=== PATIENT | female | born 1935 | race Caucasian/White ===

== ENCOUNTER 2023-12-08 12:44 | Inpatient (IN) | payer OTHER, SELFPAY ==
[2023-12-08] VITALS (23 sets, daily range): BP systolic 90–127; BP diastolic 47–86; BMI 53.6; BMI 52.6
[2023-12-08 10:16] LABS: % Eosinophils 10.9 % (0-6); % Lymphocytes 9.9 % (20.5-51.1); % Monocytes 18.9 % (1.7-9.3); % Neutrophils 58.3 % (42.2-75.2); Absolute Eosinophils 0.3 10^3/uL (0-0.7); Absolute Lymphocytes 0.3 10^3/uL (1.2-3.4); Absolute Monocytes 0.6 10^3/uL (0.1-0.6); Absolute Neutrophils 1.8 10^3/uL (1.4-6.5); Hematocrit 35.2 % (37.0-47.0); Hemoglobin 11.8 g/dL (12.0-16.0); Mean Corp Hgb Conc. 33.5 g/dL (33.0-37.0); Mean Corpuscular Hgb 34.5 pg (27.0-31.0); Mean Corpuscular Volume 102.9 fL (81.0-99.0); Nucleated Red Blood Cells % 0 %; Red Blood Cell Count 3.42 10^6/uL (4.20-5.40); Red Cell Dist. Width 15.2 % (11.5-14.5); White Blood Cell Count 3.1 10^3/uL (4.8-10.8)
[2023-12-08] MEDS: NSS 1000 IV ×2 (10:26→13:15)
--- NOTE | 2023-12-08 10:26 | ED.GENMED ---
History of Present Illness
<Lluvia Lema PA-C - Last Filed: 12/09/23 09:07>
General
Chief Complaint: Change in Mental Status
Source: patient, records and ambulance crew
Exam Limitations: clinical condition and altered mental status
Time Seen by Provider: 12/08/23 09:35
Nursing documentation reviewed up to this point in time: agreed with
Travel History
Have you had any contact with someone who has COVID-19?: No
Do you have any symptoms of coronavirus? Fever > 100 degrees, chills, cough, shortness of breath, sore throat, loss of taste or smell, muscle aches, or headache?: No
History of Present Illness
History of Present Illness:
Patient is a 88 year old female w/ hx HTN, HLD, diabetes, hypothyroid presenting from rehab facility for worsening delirium. Per notes from rehab facility�she has been very restless over the past few days and refusing medications. She has not been
eating or drinking. Per EMS�alf found her oxygen saturation in the low 90s on room air earlier today and heard audible wheezing. They gave her a DuoNeb which improved wheezing. On arrival to emergency department patient was found to be
hypothermic with a rectal temp of 92.7.
Of note, patient was currently at on 11/27/23 where MRI showed worsening osteomyelitis of thoracic spine and she was transferred to [facility] for further treatment. At [facility] ID changed treatment to daptomycin through PICC line which she is currently
receiving once daily and is planned to continue it through 12/11. While at [facility] she developed delirium possibly due to hepatic encephalopathy started on lactulose and Zyprexa.
Past History
<Lluvia Lema PA-C - Last Filed: 12/09/23 09:07>
Past History
ED Past Medical History: NIDDM and Other (COPE)
Social History
Tobacco: Non-smoker
Phy Exam
<Lluvia Lema PA-C - Last Filed: 12/09/23 09:07>
Physical Exam
Physical Exam:
General: Ill-appearing, frail-hypothermic
HEENT: Atraumatic, normocephalic; dry mucous membranes, protecting airway
CV: Regular rate and rhythm, heart sounds normal, no evidence of cyanosis
Resp: Decreased breath sounds bilaterally, O2 sat 95 on room air in emergency department
Abd: Soft, nontender, non-distended
Extremities: Bilateral lower leg edema, no cyanosis; moving all extremities
Neuro: Obtunded, some response to verbal stimuli; moving all extremities
Psych: Normal affect
Skin: Intact, rash on bilateral lower legs
Course
<Lluvia Lema PA-C - Last Filed: 12/09/23 09:07>
Orders/Labs/Results
Orders:
Orders
12/08/23 09:47
Portable Chest Xray [CR Chest Portable - 1 View] Urgent
Comment:
Reason For Exam: sob and check placement of exsisting PICC line
Reason Study Needs to be Portable: Patient Unstable
12/08/23 09:49
Electrocardiogram (*1) Urgent
Reason for Study: Other
Other Reason for Exam: Possible Sepsis
Cardiac Monitoring- Treatment ONCE
EKG- Treatment ONCE
IV Insert/Care/Rem.- Treatment PRN
Straight cath- Treatment ONCE
O2 Therapy [RESP] Urgent
Titrate/Wean O2 to maintain O2 sat greater than (%): 93
Special Instructions: TO MAINTAIN CONTINUOUS O2 SATS > OR = 93%
Pulse Ox/cont/shift [RESP] Urgent
Quantity: 1
Special Instructions: CONTINUOUS
12/08/23 10:01
Complete Blood Count/With Diff Urgent
Comprehensive Metabolic Panel Urgent
Cortisol, Random Urgent
Comment: ADD ON
Creatine Phosphokinase Urgent
Comment: ADD ON
Lactic Acid Q4H
Comment: ON ICE, CANCEL 2ND ORDER IF FIRST LACTIC ACID LEVEL <2
TSH Reflex To Free T4 Urgent
Comment: ADD ON
Blood Culture Q30M
JAY JAY Source: Blood/Venous
Specimen Description:
Comment: FROM 2 SEPARATE SITES
12/08/23 10:19
Add On- LAB Urgent
Tests Added?: TSH w/ reflex T4, random cortisol, ammonia
0.9% Sodium Chloride 1000 ml [Nss] 1,000 ml IV BOLUS
12/08/23 10:45
CT Head W/o Iv Contrast Urgent
Comment:
Reason For Exam: altered mental status
12/08/23 11:11
Ammonia Urgent
Comment: PLEASE DRAW; CANNOT ADD ON TO PREVIOUS SPECIMENS IN LAB
Blood Culture Q30M
JAY JAY Source: Blood/Venous
Specimen Description:
Comment: FROM 2 SEPARATE SITES
12/08/23 11:40
Arterial Blood Gas Urgent
%Oxygen/Room Air: 94/RA
12/08/23 11:48
Add On- LAB Urgent
Comments:: creatine phosphokinase (CPK)
Tests Added?: y
12/08/23 12:32
Intake/ Output As Directed
Frequency: Per unit guidelines
Neurological Checks As Directed
Frequency: q4h
Ot Eval And Treat Routine
Pt Eval And Treat Routine
Activity Level: As Tolerated
12/08/23 12:34
Activity As Directed
Activity Level: As Tolerated
Pneumatic Compression Sleeves As Directed
Type: Knee high
Vital Signs As Directed
Frequency: Per unit guidelines
DX Deep Vein Thrombosis Video Routine
12/08/23 12:35
Admit/Transfer Patient As Directed
Co-Sign Provider:
Level of Care: Inpatient admission
Assign to:: IMU- Intermediate Care
Physician / Group: brynn boogie
Diagnosis: Sepsis concern for bacteremia T8-T9 discitis/osteo
Reason for Hospitalization: Hypothermia concern for sepsis bacteremia, chronic T8-T9 discitis/osteomyel
Expected length of stay greater than two midnights?: Yes
ELOS- Estimated Length of Stay in days: 5
I certify the patient meets the requirements for IP care: Yes
12/08/23 12:38
INFECTIOUS DISEASE CONSULT Routine
Consulting Provider: Sana Barbosa
Was physician already notified: Yes
Reason for consult: Hypothermia concern for sepsis bacteremia
12/08/23 12:45
0.9% Sodium Chloride 1000 ml [Nss] 1,000 ml IV 80 mls/hr
12/08/23 Dinner
NPO
Allow oral meds: No
Allow clear liquids: No
NPO with Ice Chips: No
12/08/23 15:11
DAPTOmycin [Cubicin] 500 mg IV DAILY@1300
12/08/23 15:11
Admit Patient As Directed
Co-Sign Provider:
Level of Care: Inpatient admission
Assign to:: IMU- Intermediate Care
Physician / Group: brynn boogie
Diagnosis: Hypothermia concern for sepsis bacteremia, chronic T8-T9 discitis/osteomyel
Reason for Hospitalization: Hypothermia concern for sepsis bacteremia, chronic T8-T9 discitis/osteomyel
Expected length of stay greater than two midnights?: Yes
ELOS- Estimated Length of Stay in days: 5
I certify the patient meets the requirements for IP care: Yes
12/09/23 03:53
Complete Blood Count/With Diff IN AM
Comprehensive Metabolic Panel IN AM
12/10/23 06:00
Complete Blood Count/With Diff IN AM
Comprehensive Metabolic Panel IN AM
12/11/23 06:00
Complete Blood Count/With Diff IN AM
Comprehensive Metabolic Panel IN AM
12/12/23 06:00
Complete Blood Count/With Diff IN AM
Comprehensive Metabolic Panel IN AM
Abnormal Lab Results
12/08/23 12/08/23
10:01 11:40
WBC 3.1 L 10^3/uL
(4.8-10.8)
RBC 3.42 L 10^6/uL
(4.20-5.40)
Hgb 11.8 L g/dL
(12.0-16.0)
Hct 35.2 L %
(37.0-47.0)
MCV 102.9 H fL
(81.0-99.0)
MCH 34.5 H pg
(27.0-31.0)
RDW 15.2 H %
(11.5-14.5)
Plt Count 55 L 10^3/uL
(130-400)
MPV 11.3 H fL
(7.4-10.4)
Absolute Lymphs (auto) 0.3 L 10^3/uL
(1.2-3.4)
Immature Gran % 1.0 H %
(0-0.5)
Lymphocytes % 9.9 L %
(20.5-51.1)
Monocytes % 18.9 H %
(1.7-9.3)
Eosinophils % 10.9 H %
(0-6)
pH 7.33 L
(7.35-7.45)
pCO2 50 H mmHg
(32-35)
pO2 81 L mmHg
(83-108)
Chloride 109 H mmol/L
(98-107)
Carbon Dioxide 31 H mmol/L
(22-30)
BUN 34 H mg/dl
(7-17)
AST 62 H U/L
(14-36)
ALT 39 H U/L
(0-35)
Alkaline Phosphatase 369 H U/L
(38-126)
Total Protein 5.4 L g/dl
(6.3-8.2)
Albumin 2.7 L g/dl
(3.5-5.0)
12/08/23 10:01
12/08/23 10:01
Vital Signs
Initial and Last Documented VS:
Initial Vital Signs
BP
109/86
12/08/23 09:43
Last Documented Vital Signs
Temp Pulse Resp BP Pulse Ox
97.2 F 79 8 125/49 97
12/09/23 07:38 12/09/23 08:00 12/09/23 08:00 12/09/23 06:00 12/09/23 08:00
<Isacc Gan, DO - Last Filed: 12/08/23 11:08>
Orders/Labs/Results
Orders:
Orders
12/08/23 09:47
Portable Chest Xray [CR Chest Portable - 1 View] Urgent
Comment:
Reason For Exam: sob and check placement of exsisting PICC line
Reason Study Needs to be Portable: Patient Unstable
12/08/23 09:49
Electrocardiogram (*1) Urgent
Reason for Study: Other
Other Reason for Exam: Possible Sepsis
Cardiac Monitoring- Treatment ONCE
EKG- Treatment ONCE
IV Insert/Care/Rem.- Treatment PRN
Straight cath- Treatment ONCE
O2 Therapy [RESP] Urgent
Titrate/Wean O2 to maintain O2 sat greater than (%): 93
Special Instructions: TO MAINTAIN CONTINUOUS O2 SATS > OR = 93%
Pulse Ox/cont/shift [RESP] Urgent
Quantity: 1
Special Instructions: CONTINUOUS
12/08/23 10:01
Complete Blood Count/With Diff Urgent
Comprehensive Metabolic Panel Urgent
Cortisol, Random Urgent
Comment: ADD ON
Creatine Phosphokinase Urgent
Comment: ADD ON
Lactic Acid Q4H
Comment: ON ICE, CANCEL 2ND ORDER IF FIRST LACTIC ACID LEVEL <2
TSH Reflex To Free T4 Urgent
Comment: ADD ON
Blood Culture Q30M
JAY JAY Source: Blood/Venous
Specimen Description:
Comment: FROM 2 SEPARATE SITES
12/08/23 10:19
Add On- LAB Urgent
Tests Added?: TSH w/ reflex T4, random cortisol, ammonia
0.9% Sodium Chloride 1000 ml [Nss] 1,000 ml IV BOLUS
12/08/23 10:45
CT Head W/o Iv Contrast Urgent
Comment:
Reason For Exam: altered mental status
12/08/23 11:11
Ammonia Urgent
Comment: PLEASE DRAW; CANNOT ADD ON TO PREVIOUS SPECIMENS IN LAB
Blood Culture Q30M
JAY JAY Source: Blood/Venous
Specimen Description:
Comment: FROM 2 SEPARATE SITES
12/08/23 11:40
Arterial Blood Gas Urgent
%Oxygen/Room Air: 94/RA
12/08/23 11:48
Add On- LAB Urgent
Comments:: creatine phosphokinase (CPK)
Tests Added?: y
12/08/23 12:32
Intake/ Output As Directed
Frequency: Per unit guidelines
Neurological Checks As Directed
Frequency: q4h
Ot Eval And Treat Routine
Pt Eval And Treat Routine
Activity Level: As Tolerated
12/08/23 12:34
Activity As Directed
Activity Level: As Tolerated
Pneumatic Compression Sleeves As Directed
Type: Knee high
Vital Signs As Directed
Frequency: Per unit guidelines
DX Deep Vein Thrombosis Video Routine
12/08/23 12:35
Admit/Transfer Patient As Directed
Co-Sign Provider:
Level of Care: Inpatient admission
Assign to:: IMU- Intermediate Care
Physician / Group: brynn boogie
Diagnosis: Sepsis concern for bacteremia T8-T9 discitis/osteo
Reason for Hospitalization: Hypothermia concern for sepsis bacteremia, chronic T8-T9 discitis/osteomyel
Expected length of stay greater than two midnights?: Yes
ELOS- Estimated Length of Stay in days: 5
I certify the patient meets the requirements for IP care: Yes
12/08/23 12:38
INFECTIOUS DISEASE CONSULT Routine
Consulting Provider: Sana Barbosa
Was physician already notified: Yes
Reason for consult: Hypothermia concern for sepsis bacteremia
12/08/23 12:45
0.9% Sodium Chloride 1000 ml [Nss] 1,000 ml IV 80 mls/hr
12/08/23 Dinner
NPO
Allow oral meds: No
Allow clear liquids: No
NPO with Ice Chips: No
12/08/23 15:11
DAPTOmycin [Cubicin] 500 mg IV DAILY@1300
12/08/23 15:11
Admit Patient As Directed
Co-Sign Provider:
Level of Care: Inpatient admission
Assign to:: IMU- Intermediate Care
Physician / Group: brynn boogie
Diagnosis: Hypothermia concern for sepsis bacteremia, chronic T8-T9 discitis/osteomyel
Reason for Hospitalization: Hypothermia concern for sepsis bacteremia, chronic T8-T9 discitis/osteomyel
Expected length of stay greater than two midnights?: Yes
ELOS- Estimated Length of Stay in days: 5
I certify the patient meets the requirements for IP care: Yes
12/09/23 03:53
Complete Blood Count/With Diff IN AM
Comprehensive Metabolic Panel IN AM
12/10/23 06:00
Complete Blood Count/With Diff IN AM
Comprehensive Metabolic Panel IN AM
12/11/23 06:00
Complete Blood Count/With Diff IN AM
Comprehensive Metabolic Panel IN AM
12/12/23 06:00
Complete Blood Count/With Diff IN AM
Comprehensive Metabolic Panel IN AM
Abnormal Lab Results
12/08/23 12/08/23
10:01 11:40
WBC 3.1 L 10^3/uL
(4.8-10.8)
RBC 3.42 L 10^6/uL
(4.20-5.40)
Hgb 11.8 L g/dL
(12.0-16.0)
Hct 35.2 L %
(37.0-47.0)
MCV 102.9 H fL
(81.0-99.0)
MCH 34.5 H pg
(27.0-31.0)
RDW 15.2 H %
(11.5-14.5)
Plt Count 55 L 10^3/uL
(130-400)
MPV 11.3 H fL
(7.4-10.4)
Absolute Lymphs (auto) 0.3 L 10^3/uL
(1.2-3.4)
Immature Gran % 1.0 H %
(0-0.5)
Lymphocytes % 9.9 L %
(20.5-51.1)
Monocytes % 18.9 H %
(1.7-9.3)
Eosinophils % 10.9 H %
(0-6)
pH 7.33 L
(7.35-7.45)
pCO2 50 H mmHg
(32-35)
pO2 81 L mmHg
(83-108)
Chloride 109 H mmol/L
(98-107)
Carbon Dioxide 31 H mmol/L
(22-30)
BUN 34 H mg/dl
(7-17)
AST 62 H U/L
(14-36)
ALT 39 H U/L
(0-35)
Alkaline Phosphatase 369 H U/L
(38-126)
Total Protein 5.4 L g/dl
(6.3-8.2)
Albumin 2.7 L g/dl
(3.5-5.0)
12/08/23 10:01
12/08/23 10:01
Vital Signs
Initial and Last Documented VS:
Initial Vital Signs
BP
109/86
12/08/23 09:43
Last Documented Vital Signs
Temp Pulse Resp BP Pulse Ox
97.2 F 79 8 125/49 97
12/09/23 07:38 12/09/23 08:00 12/09/23 08:00 12/09/23 06:00 12/09/23 08:00
<Lluvia Lema PA-C - Last Filed: 12/09/23 09:07>
MDM/Problems Addressed
Differential Diagnosis Includes:
Sepsis secondary to osteomyelitis vs UTI vs hepatic encephalopathy, adrenal crisis, hypothyroidism
MDM/Problems Addressed:
Patient is 88-year-old female currently undergoing treatment with IV antibiotics through PICC line for worsening osteomyelitis of thoracic spine. Presenting today from rehab facility due to worsening delirium and refusal to take medications. Per
facility here her oxygen saturation was low on room air earlier with audible wheezing. She was given DuoNeb which improved wheezing. She is hypothermic by rectal temp on arrival today of 92.7. Pressures are soft. Patient is ill-appearing,
obtunded with some response to verbal stimulation. Decreased breath sounds bilaterally without wheezing. Bilateral lower extremity edema. Concern for sepsis secondary to worsening osteomyelitis/metabolic encephalopathy. Will get basic labs,
blood cultures, lactic acid, urinalysis, ABG. Will check TSH, cortisol. Will get chest x-ray and head CT due to delirium. Patient on Franki hugger. Starting IV fluids. Will order daptomycin to be given around 1 PM per patient schedule.
CBC shows pancytopenia. CMP shows evidence of renal insufficiency and transaminitis. She is hypoglycemic. CRP is much more elevated than prior result about 1 week ago - likely due to worsening osteomyelitis.
Patient will require admission for severe sepsis secondary to osteomyelitis /metabolic encephalopathy. Discussed with hospitalist.
Chronic conditions affecting care:
Osteomyelitis, nonalcoholic steatohepatitis, hypothyroidism
Acute Exacerbation and/or Progression of Chronic Illness:
Sepsis, toxic metabolic encephalopathy
<Lluvia Lema PA-C - Last Filed: 12/09/23 09:07>
*Radiology
Radiology exam reviewed: preliminary read by ED provider and radiology read reviewed
<Isacc Gan DO - Last Filed: 12/08/23 11:08>
*Pulse Oximetry
Patient hypoxic: yes
*EKG
Interpreted by ED Provider?: Yes
Interpretation: abnormal
Comparison EKG: no comparison EKG present
Heart Rate: 78
Rate: normal
Rhythm: sinus
Ischemia: non-specific ST changes
*Creasing Machine Operator Interpretation
Rate: normal
Interpretation: normal
Rhythm: sinus
*Critical Care Note
Total Time (30-74mins, 75-104mins- exclusive of procedures): 32
Data Reviewed
Review of Other/Old Records Reveals: Labs and Records
Source: patient
ED Attending Note
<Lluvia Lema PA-C - Last Filed: 12/09/23 09:07>
-
Portions of this chart may have been created with voice recognition software.� Occasional wrong word or��sound alike� substitutions may have occurred due to the inherent limitations of voice recognition software.
<Isacc Gan DO - Last Filed: 12/08/23 11:08>
ED Attending Note
Patient seen and examined by attending physician: Yes
I performed the substantive portion of visit, reviewed & personally made and approve the management plan that is documented in note by myself or MAY.: Yes
ED Attending Note:
88-year-old female known to me from her prior ER visit she had subacute osteomyelitis of the spine was treated with antibiotics apparently had worsening MRI deemed to be too complicated to be treated at [facility] was ultimately sent to [facility]
where she was treated nonoperatively with daptomycin now presents with confusion she looks more ill now than I recall, she is confused she is hypothermic blood pressure soft, cultures have been ordered, TSH cortisol been ordered, will check ABG will
require admission
Discharge Plan
Departure
Patient Disposition: Admit
Date of Disposition: 12/08/23
Time of Disposition: 11:42
Presentation/result/management discussed w/ accepting MD/DO: Hospitalist
Discharge Problem:
Bacteremia
Interventions
Interventions:
*Risk Screen - Suicide Last Done: 12/08/23 09:51
*General Assessment Last Done: 12/08/23 09:51
*Neglect/Abuse Screening Last Done: 12/08/23 09:51
*ED COVID-19 Vaccine History Last Done: 12/08/23 09:59
*Nursing Disposition Last Done: 12/08/23 14:55
Discharge Date and Time
Discharge Date/Time: 12/08/23 14:57
[2023-12-08 10:30] LABS: Lactic Acid 1.1 mmol/L (0.7-2.0)
[2023-12-08 10:35] LABS: ALT (SGPT) 39 U/L (0-35); AST (SGOT) 62 U/L (14-36); Albumin 2.7 g/dl (3.5-5.0); Alkaline Phosphatase 369 U/L (38-126); Blood Urea Nitrogen 34 mg/dl (7-17); Calcium 9.1 mg/dl (8.4-10.2); Carbon Dioxide 31 mmol/L (22-30); Chloride 109 mmol/L (98-107); Estimated Creatinine Clearance 49 ml/min; Glucose 70 mg/dl (70-99); Potassium 4.8 mmol/L (3.5-5.1); Sodium 139 mmol/L (135-145); Total Bilirubin 1.2 mg/dl (0.2-1.3); Total Protein 5.4 g/dl (6.3-8.2); eGFR 54.19
[2023-12-08 10:58] LABS: Mean Platelet Volume 11.3 fL (7.4-10.4); Platelet Count 55 10^3/uL (130-400)
[2023-12-08 11:46] LABS: Ammonia 12 umol/L (9-30)
[2023-12-08 11:53] LABS: Cortisol, Random 22.3 ug/dl; TSH Reflex To Free T4 2.16 uIU/ml (0.47-4.68)
[2023-12-08 11:55] LABS: B.E. 0 mmol/L; HCO3 26.4 mmol/L (21-28); PCO2 50 mmHg (32-35); PO2 81 mmHg (83-108); pH 7.33 (7.35-7.45)
--- NOTE | 2023-12-08 12:16 | HPS.HSE ---
Addendum entered and electronically signed by Jean Carlos Schulz MD 12/08/23 14:28:
I saw and examined the patient.
The PROTECTION AGENT or PA's note was reviewed and I agree with the note.
Comment:
Patient 88 years old female with history of CKD, liver cirrhosis, obstructive sleep apnea, diabetes mellitus, chronic back pain, obesity, E. coli UTI, liver nodule, chronic thrombocytopenia, recent T8-T9 discitis osteomyelitis with Streptococcus
agalactiae bacteremia for which she has been treated on long-term IV antibiotics, came to the hospital with acute mental status changes, hypothermia, hypotension. Patient was diagnosed with discitis back in October, sent to rehab, came back to the "[facility] in November and sent to [facility] and from [facility] sent again to rehab just a few days ago and she has been having mental status changes with confusion, hallucinations, seeing people that are not alive and describing things that have not
happened before. She has decreased responsiveness as well as hypotension and hypothermia. In the ED, she is hypothermic with a Franki hugger in place and obtunded. Lactic acid pending, elevated LFTs but normal ammonia level 12, CT of the head no
acute intraocular abnormality but stable large calcified left frontal lobe meningioma. Abnormal chest x-ray and UA. Cortisol level 22.3, TSH level 2.16. She was referred to hospitalist for further evaluation.
Physical exam:
General: Acutely ill. Hypothermic. Frail
HEENT: Normocephalic, Atraumatic and Dry Mucous Membranes
Respiratory: Decreased breath sounds bilateral. No crackles or wheezes.
Cardiac: Regular Rhythm and S1/S2
GI: Soft, Nontender and Nondistended
Musculoskeletal: Rash present. No Clubbing, No Cyanosis. There is bilateral edema
Neuro: Obtunded, does not respond to verbal stimuli, does respond to painful stimuli.
A/P:
Toxic metabolic encephalopathy in the setting of hypotension, hypothermia, recent discitis, concerns for severe sepsis with reactivation of current or new infection--> IV fluids, IV antibiotics, seen and reviewed CT of the head, Franki hugger, might
need pressors. ID consult. Discussed with son at bedside and in light of her acute illness and multiple comorbidities if she were not to respond over the next 24 to 48 hours, we will probably not escalate care but will consider hospice care.
Overall prognosis guarded.
Original Note:
Family Physician
-
Family Physician: Fela Carlton
Chief Complaint
-
Hypothermia, increased confusion
History of Present Illness
88 year female from [facility] who is obtunded and hypothermic. Patient was sent from [facility] where she has been for the last 3 days upon discharge from [facility]. Her son Royal who is power of litigation attorney is at bedside and
states that since discharge from [facility] approximately 3 days ago she has been refusing her pills food and liquids. She has had increased confusion along with increased hallucinations. He was with her last night as she becomes agitated at
nighttime and very confused. He does states she does have some lucid moments where she recognizes him and ask some questions but then becomes confused again. She is currently obtunded she does moan while sleeping. She is hypothermic in the ER
92.7 F rectal with a Franki hugger in place. There is no noted diaphoresis, abdominal pain on palpation, vomiting, diarrhea, rash. Her rash to her feet from several weeks ago appears to be resolved .
She was recently treated for septic shock with group 3 Streptococcus bacteremia from T8/T9 discitis/osteo was placed on ceftriaxone 2 g IV every 24 x 6 weeks through 12/11/2023 she came back to the ER approximately 1 week ago was sent to [facility] and
was changed to IV daptomycin she was deemed not a surgical candidate for osteomyelitis/discitis. Was also recently treated for pneumonia November 23 and placed on Levaquin. She has past medical history of meningioma left frontal head,recent
discitis/osteomyelitis at T8-9 with associated group B strep agalactiae bacteremia, White cirrhosis, paroxysmal atrial fibrillation, hypertension, CKD 3B, diabetes, obesity, obstructive sleep apnea, recent hallucinations/mood disorder.
Medical History
Past Medical History
Past Medical History: Reports Other (recent discitis/osteomyelitis at T8-9 with associated group B strep agalactiae bacteremia, White cirrhosis, paroxysmal atrial fibrillation, hypertension, CKD 3B, diabetes, obesity, obstructive sleep apnea)
Past Surgical History: Reports None
Social History
Tobacco: Non-smoker
Alcohol: None
Drug: None
Family History
Family History: Not pertinent
Allergies / Home Medications
Allergies reflects when Allergies were last updated in [facility].
Home Medications with original date entered in [facility]
Allergy/Medication List:
Allergies
Allergy/AdvReac Type Severity Reaction Status Date / Time
levofloxacin [From Levaquin] Allergy increased Verified 12/08/23 09:50
leg
swelling
and
redness in
legs
Home Medications
Bifidobacterium infantis 4 mg capsule (Align) 4 mg PO DAILY@0900 probiotic 10/29/23
benzonatate 100 mg capsule 100 mg PO TID PRN cough 10/29/23
calcium carbonate 600 mg-vitamin D3 20 mcg (800 unit) chewable tablet (Caltrate 600 plus D) 1 tab PO DAILY Supplement 10/29/23
carvedilol 3.125 mg tablet (Coreg) 3.125 mg PO BID@899,1999 Heart Disease/Condition 10/29/23
frnumzrl-cmbq-nqgh 8 mg-folic 400 mcg-K 50 mcg-lutein 300 mcg tablet (Centrum Silver Women) 1 tab PO DAILY@0900 Supplement 10/29/23
vit C 250 mg-vit E 90 mg-zinc 40 mg-copper 1 yk-rjgspf-vsekkt capsule (PreserVision AREDS-2) 2 cap PO BID@799,1999 Supplement 10/29/23
acetaminophen 500 mg tablet 1,000 mg PO Q6HPRN PRN mild pain 11/27/23
ipratropium 0.5 mg-albuterol 3 mg (2.5 mg base)/3 mL nebulization soln 3 ml inhalation R Q6HPRN PRN cough 11/27/23
lactase 3,000 unit tablet (Lactaid) 3,000 unit PO TIDPRN PRN when eats dairy 11/27/23
oxycodone 5 mg tablet 2.5 mg PO Q12H PRN severe pain 11/27/23
simethicone 125 mg chewable tablet 125 mg PO Q4H PRN gas 11/27/23
sodium chloride 0.9 % (flush) (Normal Saline Flush 0.9 % injection syringe) 10 ml IV DAILY@1300 11/27/23
sodium chloride 0.9 % (flush) (Normal Saline Flush 0.9 % injection syringe) 10 ml IV TID@0600,1200,1800 11/27/23
aspirin 81 mg tablet,delayed release 81 mg PO DAILY@0900 12/08/23
daptomycin 500 mg intravenous solution 500 mg IV DAILY@1300 12/08/23
furosemide 20 mg tablet 20 mg PO DAILY@0912/08/23
lactulose 10 gram/15 mL (15 mL) oral solution 10 g PO BID@0900,1600 12/08/23
levothyroxine 88 mcg tablet 88 mcg PO DAILY 12/08/23
magnesium 200 mg tablet 100 mg PO DAILY@0900 12/08/23
olanzapine 5 mg tablet (Zyprexa) 5 mg PO DAILY@2100 12/08/23
pantoprazole 40 mg tablet,delayed release 40 mg PO DAILY 12/08/23
polyethylene glycol 3350 17 gram oral powder packet (Miralax) 17 g PO DAILY@0912/08/23
trazodone 50 mg tablet 50 mg PO Q6HPRN PRN agitation 12/08/23
Review of Systems
-
History Source: Family (Son Royal at bedside)
A 12 point ROS was completed and negative except as noted: Yes
Constitutional: Reports Fever (Hypothermic) and Other (Obtunded but moans and sleep)
EENT: Denies Runny Nose
Respiratory: Denies Cough or Trouble Breathing
Cardiac: Denies Diaphoresis
Abdomen/GI: Denies Vomiting or Diarrhea
: Denies Incontinence
Musculoskeletal: Denies Joint Swelling or Edema
Skin: Denies Rash
Psych: Reports Other (Obtunded but moans and sleep)
Physical Exam
Vital Signs
Vital Signs
Temp Pulse Resp BP Pulse Ox
92.7 F L 58 29 109/86 95
12/08/23 09:51 12/08/23 09:51 12/08/23 09:51 12/08/23 09:51 12/08/23 09:51
Physical Exam
General: Other (Obtunded but moans and sleep)
HEENT: Anicteric and Atraumatic
Respiratory: Clear; No Wheezes, Rales or Rhonchi
Cardiac: S1/S2 and Bradycardia (Sinus); No Murmur, Rub, Gallop or Peripheral Edema
Breast: Deferred by me
GI: Soft, Non Tender, Non Distended, Normal Bowel Sounds and No Hepatosplenomegaly
Rectal: Deferred by Provider
Genito-urinary: Deferred by me
Musculoskeletal: No Clubbing, No Cyanosis and No Edema
Skin: Warm, Dry and Other (Resolved prior fungal rash to feet); No Rash
Neuro: Other (Obtunded but moans and sleep)
Laboratory Results
-
12/08/23 10:01
12/08/23 10:01
Laboratory Results
pH 7.33 (7.35-7.45) L 12/08/23 11:40
pCO2 50 mmHg (32-35) H 12/08/23 11:40
pO2 81 mmHg (83-108) L 12/08/23 11:40
HCO3 26.4 mmol/L (21-28) 12/08/23 11:40
Lactic Acid 1.1 mmol/L (0.7-2.0) 12/08/23 10:01
Total Bilirubin 1.2 mg/dl (0.2-1.3) 12/08/23 10:01
AST 62 U/L (14-36) H 12/08/23 10:01
ALT 39 U/L (0-35) H 12/08/23 10:01
Alkaline Phosphatase 369 U/L (38-126) H 12/08/23 10:01
Data Reviewed
-
Diagnostic Radiology: Report Reviewed by me
CT Scan: Report Reviewed by me
Lab Data: Labs Reviewed by me
Impression/Plan
-
Impression/Plan:
Admit to IMU
#Acute hypothermia concern for sepsis
#Hx group B streptococcus bacteremia October�November 2023 2/2 discitis T8-T9
#Chronic back pain
Was planned for IV Rocephin 6 weeks via PICC line through 12/11/2023 this was changed a little over 1 week ago to daptomycin by [facility]
92.7 F, 109/87
-Franki calero with protocol
-Random cortisol and TSH within normal limits
-Hold oxycodone 2.5 mg every 12 hours as needed due to obtunded state
-N.p.o.
-IV NSS
-Consult Infectious disease
-Continue IV daptomycin 500 mg daily
-Follow CBC, CMP
-Blood cultures x 2, UA COIN MACHINE COLLECTOR, CXR negative
-PT/OT/case management
CXR: Extremely low lung volumes with chronic of central and vascular markings, Right PICC line with tip in the SVC most likely the distal SVC
EKG: Sinus bradycardia 58 bpm, QTc 443 MS otherwise normal
2D echo 10/31/2023: EF 50-55%, mild LVH, mild/moderate MR
#Hx fungal rash feet November 28, 2023
#Hx known large left 3.9 calcified meningioma left anterior cranial fossa
-Is being monitored outpatient
CT head:Stable large calcified left frontal lobe meningioma.
No acute intracranial abnormality.
#WHITE/cirrhosis
Chronic transaminitis
Follow CMP
-Continue lactulose 10 g twice daily
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
Plt 55, follow CBC
#CKD 3B
-Follow BMP
#GERD
-Continue Protonix
#Hypothyroidism
-Continue levothyroxine
TSH NML
#Sleep apnea
#Liver nodule known
#Agitation Hx/mood disorder
-Hold trazodone 50 mg as needed, Zyprexa
#Obesity morbid�BMI 53.5 kg
dvt proph
- Scd's
DNR per son Royal at bedside who also states he has records patient does not want any type of enteral feeding/G-tube. It was discussed with son at bedside if continues to decline possible need for hospice which he is agreeable to.
--- NOTE | 2023-12-08 12:43 | CM ---
Cm reviewed medical records. Patient is from [facility] for IV antibiotics. Prior to placement at [facility], patient lived in ID at [facility]. Plan for patient most likely to return to STR at [facility]. CM will sent preliminary referral
via [facility].
PLAN: Return to [facility].
[2023-12-08 13:39] LABS: Urine Bilirubin Negative (Negative); Urine Character Very Cloudy (Clear); Urine Color Yellow; Urine Glucose Negative (Negative); Urine Ketone Negative (Negative); Urine Urobilinogen Negative (Neg - 1+)
[2023-12-08 13:51] LABS: Urine Albumin Trace (Neg - Trace); Urine Leukocyte 2+ (Negative); Urine Nitrite Negative (Negative); Urine Occult Blood 3+ (Negative)
[2023-12-08 14:01] LABS: Creatine Phosphokinase 39 U/L (30-135)
[2023-12-08 14:11] LABS: Urine Bacteria Few (Negative); Urine Yeast Many (Negative)
[2023-12-08 14:12] LABS: Urine White Cell >100 /HPF (0-5)
[2023-12-08 14:15] LABS: Urine Squamous Cell >30 /LPF (Few)
--- NOTE | 2023-12-08 14:39 | CON.ID ---
Consultation
-
Date/Time Consultation Requested: December 08, 2023 1238
Date/Time Consultation Performed: December 08, 2023 1440
Requesting Provider: Dr. Jean Carlos Schulz
Performing Provider: Dr. Sana Barbosa
Reason for Consultation: Hypothermic, change in mental status
Chief Complaint / Past History
Chief Complaint
Hallucinations
History of Present Illness
88-year-old well-known to me with history of diabetes mellitus, CKD 3B, COPE cirrhosis who was recently hospitalized from October 29 to November 09 with septic shock, group B Streptococcus bacteremia x 2 sets which quickly cleared, and acute on
chronic back pain.� TTE negative.� Eventual MRI showed T8-T9 discitis/osteo without abscess, CRP more than 150.� She was placed on ceftriaxone 2 g IV every 24 hours planning on 6 weeks through December 11, 2023.� While at [facility], patient
continues to have persistent cough for which she was placed on levofloxacin for pneumonia on November 23 per patient.� However patient then developed numbness of the feet, significant swelling with redness and blisters on both feet.�Her eft leg gave
out and she landed on her buttocks and the back of her head hit the wall.� The levofloxacin was discontinued after 2 doses.� Reep On November 25, she started coughing again.� She also noted that her low back pain has gotten worse.� She also
noted numbness of her hands.� She was sent to ER 11/27/23. ED repeat MRI findings worsening T8-T9 discitis/osteo, moderate amt of phlegmon with mild spinal cord compression. Increase in paraspinal soft tissue edema/inflammation. UA bland, Ucx VRE.
CRP overall trending down from 150 to 48. [facility] accepted her and she was transferred on 11/28/23. No surgical intervention done. She was seen by ID who changed the ceftriaxone to IV daptomycin by report due to leukopenia and thrombocytopenia.
However patient has cirrhosis with chronic thrombocytopenia and leukopenia. Patient then developed mental status change thought to be due to hepatic encephalopathy. She was placed on lactulose and olanzapine. She was discharged back to [place]
[facility] on December 06 to complete the daptomycin until December 11. However patient continued to be very confused, hallucinating, refusing p.o. intake. She was therefore sent to the ER today. Head CT showed stable meningioma. Patient is
aware that she is hallucinating. She states she was seeing people and objects that were not in the room. Her back pain is stable. Has cough which appears chronic. No diarrhea. No dysuria or urinary urgency. No fevers. No headache.
Past History
Additional Past Medical History:
GBS bacteremia, T8-T9 discitis/osteo tx with ceftriaxone 2g IV q24 (x 6 weeks, planned through 12/11/23), ceftriaxone replaced with daptomycin at [facility] 11/28/23.
Diabetes mellitus
Cirrhosis/COPE
sleep apnea on CPAP
Class III obesity BMI 54
CKD3b
Liver nodule (benign by Abd MRI)
Thrombocytopenia due to cirrhosis
Meningioma
Cholecystectomy
B TKA
Allergy History:
levofloxacin [From Levaquin] Allergy (Verified 12/08/23 09:50)
increased leg swelling and redness in legs
Medications Reviewed: Yes
Current Antibiotics:
Daptomycin
Social History
Tobacco: Former Smoker
Alcohol: None
Drug: None
Family History
Family History: Not Pertinent
Review of Systems
Review of Systems
General: Change in Appetite; Negative Fever or Chills
HEENT: Negative Sinus Problems or Headache
Cardiovascular: Negative Chest Pain
Respiratory: Cough; Negative Dyspnea or Sputum Production
Gasteroenterology: Other (no diarrhea); Negative Nausea or Vomiting
Genital / Urological: Negative Dysuria or Flank Pain
Endocrine: Weakness
Skin / Hair / Nails: Negative Rash
Neurological: Negative Headache or Dizziness
All systems: All other systems were reviewed and were negative
Vital Signs
Temp Pulse Resp BP Pulse Ox
93.9 F L 69 13 127/72 95
12/08/23 13:17 12/08/23 13:00 12/08/23 13:00 12/08/23 13:00 12/08/23 12:49
Selected Entries
12/08/23
09:51
Temp 92.7 F L
Physical Exam
Physical Exam
Constitutional: Acutely Ill
Head: Other (no frontal or maxillary sinus tenderness)
Eyes: No Conjunctival Hemorrhage and Sclera Anicteric
Cardiovascular: Regular Rate and S1/S2
Pulmonary: Clear (anteriorly)
Gastrointestinal: Soft, Non Tender, Non Distended and Normal Bowel Sounds
Genito-Urinary: Other (purewick in place); Negative CVA Tenderness
Extremities: Negative Edema
Skin: Negative Rash
Neurological: Negative Meningeal Signs
Lab / Diagnostic Study Results
12/08/23 10:01
12/08/23 10:01
Abs Immat Gran (auto) 0.0 10^3/uL (0-0.05) 12/08/23 10:01
Absolute Neuts (auto) 1.8 10^3/uL (1.4-6.5) 12/08/23 10:01
Absolute Lymphs (auto) 0.3 10^3/uL (1.2-3.4) L 12/08/23 10:01
Absolute Monos (auto) 0.6 10^3/uL (0.1-0.6) 12/08/23 10:01
Absolute Basos (auto) 0.0 10^3/uL (0-0.2) 12/08/23 10:01
Immature Gran % 1.0 % (0-0.5) H 12/08/23 10:01
Neutrophils % 58.3 % (42.2-75.2) 12/08/23 10:01
Lymphocytes % 9.9 % (20.5-51.1) L 12/08/23 10:01
Monocytes % 18.9 % (1.7-9.3) H 12/08/23 10:01
Eosinophils % 10.9 % (0-6) H 12/08/23 10:01
Basophils % 1.0 % (0-2) 12/08/23 10:01
Lactic Acid Cancelled 12/08/23 14:00
Urine WBC >100 /HPF (0-5) A 12/08/23 13:11
Ur Squamous Epith Cells >30 /LPF (Few) 12/08/23 13:11
Microbiology Results
Micro:
12/08/23 13:11 Urine Culture - Pending
Urine
12/08/23 11:11 Blood Culture - Pending
Blood/Venous
12/08/23 10:01 Blood Culture - Pending
Blood/Venous
12/08/23 CXR: Right PICC line with tip in the SVC, most likely the distal SVC. Extremely low lung volumes with crowding of central/vascular markings.
Assessment / Plan
# Acute change in mental status with hallucinations
- Suspect due to daptomycin, started last week at outside hospital.
-ammonia level normal
- dc further daptomycin.
# Hypothermia and hypotension
- Follow blood cultures
-Straight cath for urine appears contaminated specimen >sq epith cells. Pt without urinary symptoms.
- Start empiric cefepime.
- Follow temps and BP.
# T8-T9 discitis/osteo without abscess
� � - 10/28/23 Group B strep bacteremia (2 sets bcx)
� � -TTE no gross vegetation
-CRP overall trending down with slight uptick past 2 weeks: 151 -> 69.5 -> 40 -> 43 -> 48.
� - 11/27 repeat MRI showed worsening T8-T9 discitis/osteo, moderate amt of phlegmon with mild spinal cord compression. Increase in paraspinal soft tissue edema/inflammation.
-Transferred to [facility] 11/28 to 12/06. No surgical intervention
-Was receiving ceftriaxone 2gIV q24h, planned for 6 weeks through 12/11/23 then po abx. Ceftriaxone replaced with Daptomycin at [facility] to complete till 12/11.
- DC daptomycin. Replace with cefepime for now.
- Check CRP in am.
[2023-12-08] MEDS: STERILE WATER FOR INJECTION 10 ML IV (17:45)
[2023-12-08] MEDS: MAXIPIME 2000 MG IV (17:46)
--- NOTE | 2023-12-08 17:58 | PTCARENOTE ---
Patient received from ED into room 3354. Patient awake but with eyes closed. She is drowsy and falls asleep if not kept engaged. She was oriented to person and time. Her conversation is oriented and then confused at times. She reports hallucinations
recently but denies now. Assessment as charted. Temperature low, order for Franki calero received. Otherwise vitals are stable. Care as charted.
--- NOTE | 2023-12-08 18:54 | PTCARENOTE ---
Upon assessment at change of shift POX alarming 83% with good pleth. Pt SOB with speaking and RUFINA. Slight audible wheeze. Pt placed on 2L NC at this time with pox 97%. Rectal temp with jose carlos hugger 96.2. Jose Carlos hugger changed to 'Med.' Will continue to
monitor.
--- NOTE | 2023-12-08 19:21 | PTCARENOTE ---
Pt received at beginning of shift resting comfortably. Franki hugger on set at 97% on MED. Current rectal temp 96.5. BP 109/47 HR 76 RR 10. Pt arousable. Opens eyes slightly. When trying to answer questions notable SOB/slight audible EW. Was placed on
2L NC for POX 83%. Current POX 98%. Pt only able to state first name after several attempts. Lungs diminished, shallow. SR on CM. +1 LE/rash. Purewick in placed without urine output as of yet. Per report from day shift RN pt was straight cathed x 2
in ED prior to arriving to floor. Knee scd's on and working. Rest of assessment as documented. Bed alarm on and working. Call headley within reach. Will continue to monitor.
[2023-12-08] MEDS: DESENEX/MITRAZOL/ZEASORB 1 APPLIC TOPICAL (22:20)
--- NOTE | 2023-12-08 23:44 | PTCARENOTE ---
Pt woke up confused restless. Eyes open making eye contact. Asking to have her shoes taken off then asking to have them put back on. Pt able to state her name but not year. Did not know where she was. Surprised she is in [facility].
Attempt made to reorient pt to surroundings with some good result. Current temp 97.4. Franki hugger remains off. Call headley remains within reach. Will continue to monitor.
[2023-12-09] VITALS (19 sets, daily range): BP systolic 94–132; BP diastolic 43–85; PULSE 83–84; O2SAT 96–97; BMI 52.8
[2023-12-09] MEDS: NSS 1000 IV ×3 (01:40→19:54)
[2023-12-09 04:14] LABS: % Eosinophils 8.5 % (0-6); % Immature Granulocytes 0.7 % (0-0.5); % Lymphocytes 9.2 % (20.5-51.1); % Monocytes 18.5 % (1.7-9.3); % Neutrophils 62.1 % (42.2-75.2); Absolute Eosinophils 0.4 10^3/uL (0-0.7); Absolute Lymphocytes 0.4 10^3/uL (1.2-3.4); Absolute Monocytes 0.8 10^3/uL (0.1-0.6); Absolute Neutrophils 2.6 10^3/uL (1.4-6.5); Hematocrit 33.7 % (37.0-47.0); Hemoglobin 11.1 g/dL (12.0-16.0); Mean Corp Hgb Conc. 32.9 g/dL (33.0-37.0); Mean Corpuscular Hgb 34.3 pg (27.0-31.0); Nucleated Red Blood Cells % 0 %; Platelet Count 66 10^3/uL (130-400); Red Blood Cell Count 3.24 10^6/uL (4.20-5.40); White Blood Cell Count 4.1 10^3/uL (4.8-10.8)
[2023-12-09 04:37] LABS: ALT (SGPT) 36 U/L (0-35); AST (SGOT) 53 U/L (14-36); Albumin 2.4 g/dl (3.5-5.0); Alkaline Phosphatase 319 U/L (38-126); Blood Urea Nitrogen 37 mg/dl (7-17); Carbon Dioxide 28 mmol/L (22-30); Chloride 108 mmol/L (98-107); Estimated Creatinine Clearance 44 ml/min; Glucose 56 mg/dl (70-99); Potassium 4.8 mmol/L (3.5-5.1); Sodium 142 mmol/L (135-145); Total Bilirubin 1.1 mg/dl (0.2-1.3); eGFR 48.33
[2023-12-09] MEDS: DEXTROSE 50% SYRINGE 12.5 GRAMS IV ×2 (05:11→08:37)
[2023-12-09] MEDS: STERILE WATER FOR INJECTION 10 ML IV ×2 (05:11→17:52)
[2023-12-09] MEDS: MAXIPIME 2000 MG IV ×2 (05:11→17:52)
[2023-12-09] MEDS: FLUSH (NSS) 3 FLUSH IV (05:11)
--- NOTE | 2023-12-09 05:39 | PTCARENOTE ---
AM glucose resulted 56. Pt asymptomatic. Sissy KAUFMAN TT'd and informed pt NPO. Not on accuchecks and sliding scale. Order entered for 1/2 amp Dextrose. Pt received 1/2 amp dextrose as ordered with recheck of 81. Sissy montelongo'd again and will order
Q6hr accuchecks since pt is NPO. Pt resting comfortably at this time.
[2023-12-09 05:47] LABS: Glucose - Point of Care 81 mg/dl (70-99)
--- NOTE | 2023-12-09 08:14 | W.PN.HOSP.TC ---
Today's Communication/Plan
-
Continue IV antibiotics, monitor urine output, continue to monitor mental status.
Assessment / Plan
Assessment / Plan
Physical exam:
General: Chronically ill and No Apparent Distress
HEENT: Normocephalic, Atraumatic and Moist Mucous Membranes
Respiratory: Decreased breath sounds bilaterally, Clear to Auscultation; Negative Wheezes, Rales or Rhonchi
Cardiac: Regular Rhythm and S1/S2
GI: Soft, Nontender and Nondistended
Musculoskeletal: No Clubbing, No Cyanosis. Bilateral edema.
Neuro: Awake, Alert and Oriented, no gross neurological deficits today.
Psych: Calm, normal judgment and insight.
A/P:
Toxic metabolic encephalopathy:
-Probably due to medication, daptomycin. Cannot rule out new active infection. Currently on IV cefepime. ID on consult--> follow-up their recommendations.
-Improved
-Back to her normal today
-Normal ammonia level and normal CT of the head.
-PT OT eval--> recommend skilled rehab.
-Speech therapy cleared her for regular diet (resume diabetic diet).
-Discussed with both sons at bedside today on 12/09.
Hypothermia:
-On Franki hugger
-Normal TSH, 2.16
-Normal cortisol, 22.3
-Normal blood sugars
-Blood cultures no growth so far
-Abnormal urinalysis and cultures with yeast, probably contaminated
-ID on consult
Chronic kidney disease/decreased urine output:
-Off IV fluids today
-Monitor urine output closely
-Nephrology consult
+/- Boateng catheter if persistent urine output issue.
Chronic hypercapnic respiratory failure/Obstructive sleep apnea/Possible obesity hypoventilation syndrome/Shortness of breath:
-Repeat chest x-ray today
-Reviewed venous blood gas upon admission and compared to prior blood gases.
-Can use noninvasive ventilation if and or as needed.
-Continue to monitor respiratory status closely
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
-On IV cefepime now
-Prior to admission on IV daptomycin
-CRP 79 today
-Initial MRI on 11/02 with T8/9 discitis. Follow-up MRI on 11/27 describing worsening and probably epidural abscess. At [place] upon transfer no need for surgical intervention but will be reevaluated with follow-up images.
-Transthoracic echo from 10/31 no vegetations.
-Follow-up ID recommendations
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
-Resume diuretics
-Resume lactulose
-Monitor LFTs
-Normal ammonia
Hypertension:
-Continue home antihypertensive monitor blood pressure
Paroxysmal A-fib:
-Continue beta-blockers
-Continue cardiac monitoring
Diabetes mellitus type 2:
-Diabetic diet
-Start insulin sliding scale
-Hemoglobin A1c 5.7 on 10/29/2023. No need to update until 3 months past.
-Monitor blood sugars and adjust medications accordingly
Hypothyroidism:
-Resume thyroid replacement
GERD:
-Resume PPI
Morbid obesity:
-Lifestyle changes modifications
Mood disorder/History of agitation in the past:
-Resume trazodone and Zyprexa.
DVT prophylaxis:
-SCDs
-No pharmacologic prophylaxis due to thrombocytopenia
CODE STATUS:
-DNR
Total time spent on today's encounter was 52 minutes which included time spent in counseling the patient/family regarding diagnosis and treatment plan as listed above, goals of care, and symptom management. Case was discussed with nursing staff,
specialists, and care coordinators/case management. All labs and imaging personally reviewed by me. Remainder the time spent in detailed review of previous records, lab data, imaging, and other medical provider documentation.
Anticipated Discharge: > 48 hours
Subjective/Interval History
-
Date of Service: December 09, 2023
Patient is alert and oriented today and even making jokes. No hallucinations. She does have some shortness of breath and some cough. Denies dysuria, abdominal pain, nausea or vomiting, or headaches. Still on Franki hugger.
Objective Data
-
Labs:
Laboratory Results
12/09/23
03:53
WBC 4.1 L
Hgb 11.1 L
Hct 33.7 L
Plt Count 66 L
Sodium 142
Potassium 4.8
Chloride 108 H
Carbon Dioxide 28
BUN 37 H
Creatinine 1.1 H
Glucose 56 L
Calcium 9.0
Total Bilirubin 1.1
AST 53 H
ALT 36 H
Alkaline Phosphatase 319 H
Vital Signs:
Vital Signs
Temp Pulse Resp BP Pulse Ox
96.9 F L 81 10 125/49 97
12/09/23 06:00 12/09/23 06:00 12/09/23 06:00 12/09/23 06:00 12/09/23 06:00
I&O
12/08/23 12/09/23 12/10/23
06:59 06:59 06:59
Intake Total 960 / 960
Output Total 140 / 140
Balance 820 / 820
Review of Systems
-
All other systems: Reviewed and negative
[2023-12-09 08:45] LABS: Glucose - Point of Care 51 mg/dl (70-99)
[2023-12-09 09:15] LABS: Glucose - Point of Care 78 mg/dl (70-99)
--- NOTE | 2023-12-09 10:47 | PTOTSP ---
Dysphagia Evaluation
Patient presents with a grossly functional oropharyngeal swallow. No overt s/s of aspiration or penetration demonstrated this date. Recommend resumption of baseline diet of regular solids and thin liquids with PROCUREMENT ANALYST service to follow up x1 to assess
tolerance in the presence of workup s/p AMS.
Recommend:
1. Regular solids (IDDSI 7), thin liquids (IDDSI 0)
2. Medications as tolerated
3. Small bites, single sips, alternate bites and sips
4. ONLY FEED WHEN AWAKE AND ALERT
5. Aspiration and reflux precautions - specifically upright during meals, and after meals for 30 minutes
6. PROCUREMENT ANALYST service to follow up at the acute care level and provide dysphagia tx PRN
--- NOTE | 2023-12-09 11:38 | W.PN.ID1 ---
Date of Service
Date of Service: December 09, 2023
Today's Communication
See below.
Assessment / Plan
# Acute change in mental status with hallucinations, resolving
- due to daptomycin, started last week at outside hospital.
- mental status improved off daptomycin
# Hypothermia and hypotension, improving
- blood cultures neg to date
-Straight cath for urine appears contaminated specimen >sq epith cells. Pt without urinary symptoms.
- On empiric cefepime (d2)
- Follow temps and BP.
# T8-T9 discitis/osteo without abscess
� � - 10/28/23 Group B strep bacteremia (2 sets bcx)
� � -TTE no gross vegetation
-CRP overall trending down 151 -> 69.5 -> 40 -> 43 -> 48.
� - 11/27 repeat MRI showed worsening T8-T9 discitis/osteo, moderate amt of phlegmon with mild spinal cord compression. Increase in paraspinal soft tissue edema/inflammation.
-Transferred to [facility] 11/28 to 12/06. No surgical intervention
-Was receiving ceftriaxone 2gIV q24h, planned for 6 weeks through 12/11/23 then po abx. Ceftriaxone replaced with Daptomycin at [facility] to complete till 12/11.
- DC'd daptomycin 12/08/23 -> replace with cefepime for now.
- Elevated CRP 78 likely reactive to recent events of encephalopathy
- Anticipate transition to po abx after 12/11/23 for another 6 week course.
#Additional Past Medical History:
GBS bacteremia, T8-T9 discitis/osteo tx with 6 weeks IV abx through 12/11/23.
Diabetes mellitus
Cirrhosis/COPE
sleep apnea on CPAP
Class III obesity BMI 54
CKD3b
Liver nodule (benign by Abd MRI)
Thrombocytopenia due to cirrhosis
Meningioma
Cholecystectomy
B TKA
Chief Complaint
-: Other (Hallucinations)
Subjective / Review of Systems
2 sons at bedside. Patient's mental status much improved.
Awake, alert, no hallucinations today.
Vital Signs / Physical Exam
Vital Signs
Vital Signs
Temp Pulse Resp BP Pulse Ox
97.2 F 79 10 119/60 97
12/09/23 07:38 12/09/23 10:00 12/09/23 10:00 12/09/23 09:26 12/09/23 10:00
Physical Exam
Constitutional: No Acute Distress, Comfortable and Non-toxic
Eyes: Sclera Anicteric
Cardiovascular: Regular Rate and S1/S2
Gastrointestinal: Soft, Non Tender and Non Distended
Extremities: Edema (1+)
Neurological: Alert and AO x 3
Lines: PICC (RUE intact)
Objective Data
Lab Data
Lab Results
12/09/23 03:53
12/09/23 03:53
Estimated Creat Clear 44 ml/min 12/09/23 03:53
Lactic Acid Cancelled 12/08/23 14:00
Total Bilirubin 1.1 mg/dl (0.2-1.3) 12/09/23 03:53
AST 53 U/L (14-36) H 12/09/23 03:53
ALT 36 U/L (0-35) H 12/09/23 03:53
Alkaline Phosphatase 319 U/L (38-126) H 12/09/23 03:53
C-Reactive Protein 79.70 mg/L (0.0-10.00) H 12/09/23 03:53
Most recent labs reviewed.
Micro Results:
12/08/23 11:11 Blood Culture - Preliminary
Blood/Venous No Growth in 24 hours- Final report to follow
12/08/23 10:01 Blood Culture - Preliminary
Blood/Venous No Growth in 24 hours- Final report to follow
12/08/23 17:44 MRSA Screen - Pending
Nose
12/08/23 13:11 Urine Culture - Pending
Urine
12/08/23 CXR: Right PICC line with tip in the SVC, most likely the distal SVC. Extremely low lung volumes with crowding of central/vascular markings.
Care Review
Plan reviewed with: Other (Patient's sons at bedside.)
[2023-12-09 12:10] LABS: Glucose - Point of Care 71 mg/dl (70-99)
[2023-12-09] MEDS: DESENEX/MITRAZOL/ZEASORB 1 APPLIC TOPICAL ×2 (14:00→19:55)
--- NOTE | 2023-12-09 15:03 | CON.MD ---
Consultation - Medical
-
Assessment:
CKD3a
Hypotension
Sepsis with strep bacteremia (diskitis) recent
Thrombocytopenia
Liver lesion with hepatic cirrhosis
Sleep apnea
Super morbid obesity
Hypoalbuminemia
delirium
Plan:
-IVF today still
-can restart lasix tomorrow if BP is good
-encourage po intake
-d/w pt and
-[id number]
--- NOTE | 2023-12-09 17:12 | PTCARENOTE ---
pt has not voided today. bladder scanned this am for 20 ml. bladder scanned at 1415 for 77 ml. patient incontinent of large amount daniel urine immediately following bladder scan. external female catheter placed. continuing to monitor
[2023-12-09] MEDS: ROXICODONE 2.5 MG PO (17:50)
[2023-12-09] MEDS: DUPHALAC/CHRONULAC 10 GRAMS PO (17:51)
[2023-12-09] MEDS: PROTONIX 40 MG PO (17:52)
[2023-12-09 18:08] LABS: Glucose - Point of Care 72 mg/dl (70-99)
[2023-12-09] MEDS: ZYPREXA 5 MG PO (19:55)
[2023-12-09] MEDS: OCUVITE SOFTGEL 1 CAP PO (19:55)
[2023-12-09] MEDS: COREG 3.125 MG PO (19:56)
[2023-12-09 21:33] LABS: Glucose - Point of Care 105 mg/dl (70-99)
--- NOTE | 2023-12-09 21:47 | PTCARENOTE ---
Pt received at beginning of shift resting in bed eating dinner with family at bedside. AAOx3. Very jolly in conversation. VSS afebrile. SR/BBB/PACs on CM. POX 98% on 2L NC. Admits to pain to back; received pain med by off going day shift RN. Pt
repositioned to help with comfort. Pt having no issues eating and drinking. Purewick with small amount daniel urine in canister. Knee scds on and working. Rest of assessment as documented. Neuro checks as documented. Call headley remains within reach.
Will continue to monitor.
[2023-12-10] VITALS (12 sets, daily range): BP systolic 89–118; BP diastolic 47–86; BMI 53.4
[2023-12-10 03:09] LABS: Glucose - Point of Care 76 mg/dl (70-99)
[2023-12-10 05:05] LABS: % Basophils 0.9 % (0-2); % Eosinophils 10.1 % (0-6); % Immature Granulocytes 1.2 % (0-0.5); % Lymphocytes 12.2 % (20.5-51.1); % Monocytes 20.8 % (1.7-9.3); % Neutrophils 54.8 % (42.2-75.2); Absolute Eosinophils 0.3 10^3/uL (0-0.7); Absolute Lymphocytes 0.4 10^3/uL (1.2-3.4); Absolute Monocytes 0.7 10^3/uL (0.1-0.6); Absolute Neutrophils 1.8 10^3/uL (1.4-6.5); Hematocrit 32.6 % (37.0-47.0); Hemoglobin 10.8 g/dL (12.0-16.0); Mean Corp Hgb Conc. 33.1 g/dL (33.0-37.0); Mean Corpuscular Hgb 34.3 pg (27.0-31.0); Mean Corpuscular Volume 103.5 fL (81.0-99.0); Mean Platelet Volume 11.3 fL (7.4-10.4); Nucleated Red Blood Cells % 0 %; Platelet Count 60 10^3/uL (130-400); Red Blood Cell Count 3.15 10^6/uL (4.20-5.40); Red Cell Dist. Width 15.3 % (11.5-14.5); White Blood Cell Count 3.3 10^3/uL (4.8-10.8)
[2023-12-10 05:18] LABS: INR 1.34; PT 16.4 Sec (11.4-14.6)
[2023-12-10 05:20] LABS: ALT (SGPT) 38 U/L (0-35); AST (SGOT) 63 U/L (14-36); Albumin 2.4 g/dl (3.5-5.0); Alkaline Phosphatase 316 U/L (38-126); Blood Urea Nitrogen 35 mg/dl (7-17); Calcium 8.9 mg/dl (8.4-10.2); Carbon Dioxide 27 mmol/L (22-30); Chloride 110 mmol/L (98-107); Estimated Creatinine Clearance 45 ml/min; Glucose 86 mg/dl (70-99); Potassium 4.5 mmol/L (3.5-5.1); Sodium 142 mmol/L (135-145); Total Protein 4.9 g/dl (6.3-8.2); eGFR 48.33
[2023-12-10] MEDS: ROXICODONE 2.5 MG PO (05:35)
[2023-12-10] MEDS: MAXIPIME 2000 MG IV (05:36)
[2023-12-10] MEDS: STERILE WATER FOR INJECTION 10 ML IV (05:36)
[2023-12-10] MEDS: FLUSH (NSS) 2 FLUSH IV (05:36)
[2023-12-10] MEDS: SYNTHROID 88 MCG PO (05:38)
--- NOTE | 2023-12-10 07:36 | PTCARENOTE ---
Patient's blood sugar this morning 70. Pt given 4 oz of orange juice. She is reporting pain in her back following turning this morning. Patient already medicated with PRN Oxycodone at 0530 this morning.
[2023-12-10 07:37] LABS: Glucose - Point of Care 70 mg/dl (70-99)
[2023-12-10] MEDS: DESENEX/MITRAZOL/ZEASORB 1 APPLIC TOPICAL ×2 (08:11→21:03)
[2023-12-10] MEDS: DUPHALAC/CHRONULAC 10 GRAMS PO ×2 (08:11→16:50)
[2023-12-10] MEDS: ASPIR LOW (ENTERIC COATED) 81 MG PO (08:12)
[2023-12-10] MEDS: OSCAL 500 + D 500 MG PO (08:12)
[2023-12-10] MEDS: MAG-TAB SR 84 MG PO (08:12)
[2023-12-10] MEDS: THERAGRAN 1 TABLET PO (08:12)
[2023-12-10] MEDS: OCUVITE SOFTGEL 1 CAP PO ×2 (08:12→21:03)
[2023-12-10] MEDS: VISBIOME 1 CAP PO (08:12)
[2023-12-10] MEDS: PROTONIX 40 MG PO (08:12)
[2023-12-10] MEDS: COREG 3.125 MG PO ×2 (08:14→21:03)
[2023-12-10] MEDS: MIRALAX 17 GRAMS PO (08:14)
--- NOTE | 2023-12-10 08:48 | W.PN.HOSP.TC ---
Today's Communication/Plan
-
Continue IV antibiotics, bear hugger, IV fluids.
Assessment / Plan
Assessment / Plan
Physical exam:
General: Chronically ill and No Apparent Distress
HEENT: Normocephalic, Atraumatic and Moist Mucous Membranes
Respiratory: Decreased breath sounds bilaterally, Clear to Auscultation; Negative Wheezes, Rales or Rhonchi
Cardiac: Regular Rhythm and S1/S2
GI: Soft, Nontender and Nondistended
Musculoskeletal: No Clubbing, No Cyanosis. Bilateral edema.
Neuro: Awake, Alert and Oriented, no gross neurological deficits today.
Psych: Calm, normal judgment and insight.
A/P:
Toxic metabolic encephalopathy:
-Probably due to medication, daptomycin. Cannot rule out new active infection. Currently on IV ceftriaxone. ID on consult--> follow-up their recommendations.
-Improved
-Back to her normal since yesterday on 12/09
-Normal ammonia level and normal CT of the head.
-PT OT eval--> recommend skilled rehab.
-Speech therapy cleared her for regular diet (resume diabetic diet).
-Discussed again with son at bedside today on 12/10
Hypothermia:
-On Franki hugger
-Normal TSH, 2.16
-Normal cortisol, 22.3
-Low blood sugars today--> increase carbohydrate intake and if that does not help might need to do D5 infusion. Will reevaluate.
-Blood cultures no growth so far
-Abnormal urinalysis and cultures with yeast, probably contaminated
-ID on consult
Chronic kidney disease/decreased urine output:
-Restarted IV fluids yesterday by nephro
-Monitor urine output closely
-Nephrology consult
Chronic hypercapnic respiratory failure/Obstructive sleep apnea/Possible obesity hypoventilation syndrome/Shortness of breath:
-Repeated chest x-ray--> atelectasis but otherwise unremarkable for acute findings
-Reviewed venous blood gas upon admission and compared to prior blood gases.
-Can use noninvasive ventilation if and or as needed.
-Continue to monitor respiratory status closely
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
-On IV Ceftriaxone 2 gr daily now. As per ID plan to continue ceftriaxone through 12/11 and then oral cefuroxime 500 mg twice a day for 6 more weeks.
-Prior to admission on IV daptomycin and then switched to Cefepime and now Ceftriaxone.
-CRP 79 this admission
-Initial MRI on 11/02 with T8/9 discitis. Follow-up MRI on 11/27 describing worsening and probably epidural abscess. At [place] upon transfer no need for surgical intervention but will be reevaluated with follow-up images.
-Transthoracic echo from 10/31 no vegetations.
-Follow-up ID recommendations
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
-Resume diuretics
-Resume lactulose
-Monitor LFTs
-Normal ammonia
Hypertension:
-Continue home antihypertensive monitor blood pressure
Paroxysmal A-fib:
-Continue beta-blockers
-Continue cardiac monitoring
Diabetes mellitus type 2:
-Diabetic diet
-Start insulin sliding scale
-Hemoglobin A1c 5.7 on 10/29/2023. No need to update until 3 months past.
-Monitor blood sugars and adjust medications accordingly
Hypothyroidism:
-Resume thyroid replacement
GERD:
-Resume PPI
Morbid obesity:
-Lifestyle changes modifications
Mood disorder/History of agitation in the past:
-Resume trazodone and Zyprexa.
DVT prophylaxis:
-SCDs
-No pharmacologic prophylaxis due to thrombocytopenia
CODE STATUS:
-DNR
Total time spent on today's encounter was 52 minutes which included time spent in counseling the patient/family regarding diagnosis and treatment plan as listed above, goals of care, and symptom management. Case was discussed with nursing staff,
specialists, and care coordinators/case management. All labs and imaging personally reviewed by me. Remainder the time spent in detailed review of previous records, lab data, imaging, and other medical provider documentation.
Anticipated Discharge: > 48 hours
Subjective/Interval History
-
Date of Service: December 10, 2023
Patient feels better overall. She does run low blood pressure today and went hypothermic again. Also relatively low blood sugars. Her urine output is improving.
Objective Data
-
Labs:
Laboratory Results
12/10/23
04:11
WBC 3.3 L
Hgb 10.8 L
Hct 32.6 L
Plt Count 60 L
PT 16.4 H
INR 1.34
Sodium 142
Potassium 4.5
Chloride 110 H
Carbon Dioxide 27
BUN 35 H
Creatinine 1.1 H
Glucose 86
Calcium 8.9
Total Bilirubin 1.0
AST 63 H
ALT 38 H
Alkaline Phosphatase 316 H
Vital Signs:
Vital Signs
Temp Pulse Resp BP Pulse Ox
93.6 F L 60 11 104/50 97
12/10/23 08:30 12/10/23 08:14 12/10/23 08:13 12/10/23 08:14 12/10/23 08:13
I&O
12/09/23 12/10/23 12/11/23
06:59 06:59 06:59
Intake Total 960 / 960 1610 / 1610
Output Total 140 / 140 350 / 350
Balance 820 / 820 1260 / 1260
Review of Systems
-
All other systems: Reviewed and negative
--- NOTE | 2023-12-10 10:31 | W.PN.NEPH.PH ---
Today's Communication / Plan
-
IVF
Assessment/Plan
-
Assessment:
CKD3a
Hypotension
Sepsis with strep bacteremia (diskitis) recent
Thrombocytopenia
Liver lesion with hepatic cirrhosis
Sleep apnea
Super morbid obesity
Hypoalbuminemia
delirium
Plan:
-IVF today still
-hold on lasix today
-encourage po intake
-follow BMP/UOP
-
-
Date of Service: December 10, 2023
CC / HPI / ROS
-
Chief Complaint:
oliguria
History of Present Illness:
Na stable normal
Cr stable 1.1
remains oliguric
po intake low still
Review of Systems:
no CP/SOB
Labs
-
Labs:
WBC 3.3 10^3/uL (4.8-10.8) L 12/10/23 04:11
RBC 3.15 10^6/uL (4.20-5.40) L 12/10/23 04:11
Hgb 10.8 g/dL (12.0-16.0) L 12/10/23 04:11
Hct 32.6 % (37.0-47.0) L 12/10/23 04:11
Plt Count 60 10^3/uL (130-400) L 12/10/23 04:11
Sodium 142 mmol/L (135-145) 12/10/23 04:11
Potassium 4.5 mmol/L (3.5-5.1) 12/10/23 04:11
Chloride 110 mmol/L (98-107) H 12/10/23 04:11
Carbon Dioxide 27 mmol/L (22-30) 12/10/23 04:11
BUN 35 mg/dl (7-17) H 12/10/23 04:11
Creatinine 1.1 mg/dL (0.6-1.0) H 12/10/23 04:11
eGFR 48.33 12/10/23 04:11
Glucose 86 mg/dl (70-99) 12/10/23 04:11
Calcium 8.9 mg/dl (8.4-10.2) 12/10/23 04:11
Albumin 2.4 g/dl (3.5-5.0) L 12/10/23 04:11
Physical Exam
-
Vital Signs:
Vital Signs
Temp Pulse Resp BP Pulse Ox
94.7 F L 65 6 104/50 98
12/10/23 10:00 12/10/23 10:00 12/10/23 10:00 12/10/23 08:14 12/10/23 10:00
Cardiovascular:: Regular rate and rhythm
Respiratory:: Bilateral: Coarse
Lung Excursion:: Normal
Abdomen:: Nontender and Soft
Bowel Sounds:: Normal
Extremity Edema:: +1: Bilateral:
--- NOTE | 2023-12-10 10:45 | W.PN.ID1 ---
Date of Service
Date of Service: December 10, 2023
Today's Communication
Transition back to ceftriaxone to complete course through 12/11, then po cefuroxime 500mg po bid x 6 more weeks.
Assessment / Plan
# Acute change in mental status with hallucinations, resolving
- due to daptomycin, started last week at outside hospital.
- mental status improved off daptomycin
# Hypothermia and hypotension, waxing and waning
- blood cultures neg to date
-Straight cath for urine appears contaminated specimen >sq epith cells. Pt without urinary symptoms.
-DC cefepime
- Follow temps and BP.
# T8-T9 discitis/osteo without abscess
� � - 10/28/23 Group B strep bacteremia (2 sets bcx)
� � -TTE no gross vegetation
-CRP overall trending down 151 -> 69.5 -> 40 -> 43 -> 48.
� - 11/27 repeat MRI showed worsening T8-T9 discitis/osteo, moderate amt of phlegmon with mild spinal cord compression. Increase in paraspinal soft tissue edema/inflammation.
-Transferred to [facility] 11/28 to 12/06. No surgical intervention
-Was receiving ceftriaxone 2gIV q24h, planned for 6 weeks through 12/11/23 then po abx. Ceftriaxone replaced with Daptomycin at [facility] to complete till 12/11.
- DC'd daptomycin 12/08/23 -> replace with cefepime -> dc'd 12/10
- Elevated CRP 78 likely reactive to recent events of encephalopathy
- Transition back to ceftriaxone to complete course through 12/11, then po cefuroxime 500mg po bid x 6 more weeks.
#Additional Past Medical History:
GBS bacteremia, T8-T9 discitis/osteo tx with 6 weeks IV abx through 12/11/23.
Diabetes mellitus
Cirrhosis/COPE
sleep apnea on CPAP
Class III obesity BMI 54
CKD3b
Liver nodule (benign by Abd MRI)
Thrombocytopenia due to cirrhosis
Meningioma
Cholecystectomy
B TKA
Chief Complaint
-: Other (Hallucinations)
Subjective / Review of Systems
[place] cold this am. Currently on Bare Hugger.
Was lucid all day yesterday, per son.
Vital Signs / Physical Exam
Vital Signs
Vital Signs
Temp Pulse Resp BP Pulse Ox
94.7 F L 65 6 104/50 96
12/10/23 10:00 12/10/23 10:00 12/10/23 10:00 12/10/23 08:14 12/10/23 10:27
Physical Exam
Constitutional: Comfortable
Gastrointestinal: Soft, Non Tender and Non Distended
Genito-Urinary: Clear Urine
Extremities: Edema
Objective Data
Lab Data
Lab Results
12/10/23 04:11
12/10/23 04:11
PT 16.4 Sec (11.4-14.6) H 12/10/23 04:11
INR 1.34 12/10/23 04:11
Estimated Creat Clear 45 ml/min 12/10/23 04:11
Lactic Acid Cancelled 12/08/23 14:00
Total Bilirubin 1.0 mg/dl (0.2-1.3) 12/10/23 04:11
AST 63 U/L (14-36) H 12/10/23 04:11
ALT 38 U/L (0-35) H 12/10/23 04:11
Alkaline Phosphatase 316 U/L (38-126) H 12/10/23 04:11
C-Reactive Protein 79.70 mg/L (0.0-10.00) H 12/09/23 03:53
Most recent labs reviewed.
Micro Results:
12/08/23 10:01 Blood Culture - Preliminary
Blood/Venous No Growth in 48 hours- Final report to follow
12/08/23 17:44 MRSA Screen - Final
Nose No Methicillin Resistant Staphylococcus aureus isolated.
12/08/23 13:11 Urine Culture - Preliminary
Urine Yeast
Additional testing on request
12/08/23 11:11 Blood Culture - Preliminary
Blood/Venous No Growth in 24 hours- Final report to follow
12/08/23 CXR: Right PICC line with tip in the SVC, most likely the distal SVC. Extremely low lung volumes with crowding of central/vascular markings.
[2023-12-10] MEDS: NSS 1000 IV ×2 (11:24→23:38)
[2023-12-10 11:32] LABS: Glucose - Point of Care 93 mg/dl (70-99)
[2023-12-10] MEDS: STERILE WATER FOR INJECTION 20 ML IV (13:21)
[2023-12-10] MEDS: ROCEPHIN 2000 MG IV (13:21)
[2023-12-10 16:30] LABS: Glucose - Point of Care 80 mg/dl (70-99)
[2023-12-10] MEDS: ZYPREXA 5 MG PO (21:03)
[2023-12-10 22:21] LABS: Glucose - Point of Care 103 mg/dl (70-99)
[2023-12-11] VITALS (12 sets, daily range): BP systolic 106–142; BP diastolic 57–107; BMI 54.3
--- NOTE | 2023-12-11 03:53 | PTCARENOTE ---
rectal temp 95.3- bear latoyaer restarted- pt remains ax3 bp wnl 96% on 2 liters
[2023-12-11] MEDS: SYNTHROID 88 MCG PO (04:18)
[2023-12-11 05:55] LABS: % Eosinophils 10.4 % (0-6); % Immature Granulocytes 1.3 % (0-0.5); % Lymphocytes 12.3 % (20.5-51.1); % Monocytes 18.1 % (1.7-9.3); % Neutrophils 56.9 % (42.2-75.2); Absolute Eosinophils 0.3 10^3/uL (0-0.7); Absolute Lymphocytes 0.4 10^3/uL (1.2-3.4); Absolute Monocytes 0.6 10^3/uL (0.1-0.6); Absolute Neutrophils 1.8 10^3/uL (1.4-6.5); Hemoglobin 10.6 g/dL (12.0-16.0); Mean Corp Hgb Conc. 33.1 g/dL (33.0-37.0); Mean Corpuscular Volume 102.6 fL (81.0-99.0); Mean Platelet Volume 11.6 fL (7.4-10.4); Nucleated Red Blood Cells % 0 %; Platelet Count 55 10^3/uL (130-400); Red Blood Cell Count 3.12 10^6/uL (4.20-5.40); White Blood Cell Count 3.1 10^3/uL (4.8-10.8)
[2023-12-11] MEDS: ROXICODONE 2.5 MG PO (06:09)
[2023-12-11 06:16] LABS: ALT (SGPT) 45 U/L (0-35); AST (SGOT) 77 U/L (14-36); Albumin 2.3 g/dl (3.5-5.0); Alkaline Phosphatase 343 U/L (38-126); Blood Urea Nitrogen 33 mg/dl (7-17); Calcium 8.9 mg/dl (8.4-10.2); Carbon Dioxide 26 mmol/L (22-30); Chloride 108 mmol/L (98-107); Estimated Creatinine Clearance 41 ml/min; Glucose 75 mg/dl (70-99); Potassium 4.5 mmol/L (3.5-5.1); Sodium 140 mmol/L (135-145); Total Bilirubin 0.9 mg/dl (0.2-1.3); Total Protein 4.8 g/dl (6.3-8.2); eGFR 43.54
--- NOTE | 2023-12-11 06:29 | PTCARENOTE ---
5 lb weight gain- reweighed and verified. severe back pain medicated with prn Roxicodone see mar
--- NOTE | 2023-12-11 07:49 | W.PN.HOSP.TC ---
Today's Communication/Plan
-
Continue current antibiotics. Monitor mental status, temperature, and renal function closely.
Assessment / Plan
Assessment / Plan
Physical exam:
General: Chronically ill and No Apparent Distress
HEENT: Normocephalic, Atraumatic and Moist Mucous Membranes
Respiratory: Decreased breath sounds bilaterally, Clear to Auscultation; Negative Wheezes, Rales or Rhonchi
Cardiac: Regular Rhythm and S1/S2
GI: Soft, Nontender and Nondistended
Musculoskeletal: No Clubbing, No Cyanosis. Bilateral edema.
Neuro: Awake, Alert and Oriented, no gross neurological deficits today.
Psych: Calm, normal judgment and insight.
A/P:
Toxic metabolic encephalopathy:
-Likely due to medication, daptomycin; also ?probably new infection (enterococcus UTI). Currently on IV ceftriaxone. ID on consult--> follow-up their recommendations.
-Improving
-Back to her normal although slightly off so cont to monitor mental status
-Normal ammonia level and normal CT of the head.
-PT OT eval--> recommend skilled rehab.
-Speech therapy cleared her for regular diet (resume diabetic diet).
-Discussed again with both sons at bedside today on 12/11
Hypothermia:
-On Franki hugger
-Normal TSH, 2.16
-Normal cortisol, 22.3
-Low blood sugars yesterday and although improved after increasing carbohydrate intake they are marginally better-->needs to continue monitor closely.
-Blood cultures no growth so far
-Abnormal urinalysis and cultures with Enterococcus and yeast, the latter probably contaminant.
-ID on consult
Enterococcus UTI (VRE) unsure true pathogen or contaminant/Yeast in the urine, likely contaminant:
-ID on board
-Cont on Ceftriaxone-->changes per ID if needed. At this point ID feels pathogen is a colonization. Might repeat urine/urine culture.
Chronic kidney disease/decreased urine output:
-Restarted IV fluids yesterday by nephro
-Cont to monitor urine output closely
-Creatinine today is 1.2 which is close to her baseline
-Nephrology consult
Chronic hypercapnic respiratory failure/Obstructive sleep apnea/Possible obesity hypoventilation syndrome/Shortness of breath:
-Repeated chest x-ray--> atelectasis but otherwise unremarkable for acute findings
-Reviewed venous blood gas upon admission and compared to prior blood gases.
-Can use noninvasive ventilation if and or as needed.
-Continue to monitor respiratory status closely
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
-On IV Ceftriaxone 2 gr daily now. As per ID plan to continue ceftriaxone through 12/11 and then oral cefuroxime 500 mg twice a day for 6 more weeks.
-Prior to admission on IV daptomycin and then switched to Cefepime and now Ceftriaxone.
-CRP 79 this admission
-Initial MRI on 11/02 with T8/9 discitis. Follow-up MRI on 11/27 describing worsening and probably epidural abscess. At [place] upon transfer no need for surgical intervention but will be reevaluated with follow-up images.
-Transthoracic echo from 10/31 no vegetations.
-Follow-up ID recommendations
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
-Resume diuretics when nephro clear her
-Resumed lactulose
-Monitor LFTs adn INR
-Normal ammonia
Hypertension:
-Continue home antihypertensive monitor blood pressure
Paroxysmal A-fib:
-Continue beta-blockers
-Continue cardiac monitoring
Diabetes mellitus type 2:
-Diabetic diet
-Start insulin sliding scale
-Hemoglobin A1c 5.7 on 10/29/2023. No need to update until 3 months past.
-Monitor blood sugars and adjust medications accordingly
Hypothyroidism:
-Resume thyroid replacement
GERD:
-Resume PPI
Morbid obesity:
-Lifestyle changes modifications
Mood disorder/History of agitation in the past:
-Resume trazodone and Zyprexa.
DVT prophylaxis:
-SCDs
-No pharmacologic prophylaxis due to thrombocytopenia
CODE STATUS:
-DNR
Total time spent on today's encounter was 52 minutes which included time spent in counseling the patient/family regarding diagnosis and treatment plan as listed above, goals of care, and symptom management. Case was discussed with nursing staff,
specialists, and care coordinators/case management. All labs and imaging personally reviewed by me. Remainder the time spent in detailed review of previous records, lab data, imaging, and other medical provider documentation.
Anticipated Discharge: > 48 hours
Subjective/Interval History
-
Date of Service: December 11, 2023
Patient still requiring Bear hugger, she is alert but a bit drowsy and although she is oriented she is slightly off on her mentation today. She does complain of mild short of breath and mild cough. Also continues to complain of back pain. Blood
pressure is coming up today. Sons are at bedside today.
Objective Data
-
Labs:
Laboratory Results
12/11/23
04:22
WBC 3.1 L
Hgb 10.6 L
Hct 32.0 L
Plt Count 55 L
Sodium 140
Potassium 4.5
Chloride 108 H
Carbon Dioxide 26
BUN 33 H
Creatinine 1.2 H
Glucose 75
Calcium 8.9
Total Bilirubin 0.9
AST 77 H
ALT 45 H
Alkaline Phosphatase 343 H
Vital Signs:
Vital Signs
Temp Pulse Resp BP Pulse Ox
96.3 F L 68 12 127/70 97
12/11/23 06:00 12/11/23 06:00 12/11/23 06:00 12/11/23 06:00 12/11/23 06:00
I&O
12/10/23 12/11/23 12/12/23
06:59 06:59 06:59
Intake Total 1610 / 1610 1899
Output Total 350 / 350
Balance 1260 / 1260 1899
Review of Systems
-
All other systems: Reviewed and negative
[2023-12-11 08:04] LABS: Glucose - Point of Care 68 mg/dl (70-99)
[2023-12-11 09:05] LABS: Glucose - Point of Care 80 mg/dl (70-99)
[2023-12-11] MEDS: DESENEX/MITRAZOL/ZEASORB 1 APPLIC TOPICAL ×2 (09:11→20:07)
[2023-12-11] MEDS: MIRALAX 17 GRAMS PO (09:11)
[2023-12-11] MEDS: DUPHALAC/CHRONULAC 10 GRAMS PO ×2 (09:11→17:00)
[2023-12-11] MEDS: THERAGRAN 1 TABLET PO (09:12)
[2023-12-11] MEDS: OCUVITE SOFTGEL 1 CAP PO ×2 (09:12→20:07)
[2023-12-11] MEDS: ASPIR LOW (ENTERIC COATED) 81 MG PO (09:12)
[2023-12-11] MEDS: VISBIOME 1 CAP PO (09:13)
[2023-12-11] MEDS: COREG 3.125 MG PO ×2 (09:13→20:07)
[2023-12-11] MEDS: MAG-TAB SR 84 MG PO (09:13)
[2023-12-11] MEDS: OSCAL 500 + D 500 MG PO (09:14)
[2023-12-11] MEDS: PROTONIX 40 MG PO (09:14)
--- NOTE | 2023-12-11 09:28 | W.PN.NEPH.PH ---
Today's Communication / Plan
-
check bladder scan
Assessment/Plan
-
Assessment:
CKD3a/jrenal cysts
Hypotension
Sepsis with strep bacteremia (diskitis) recent
Thrombocytopenia
Liver lesion with hepatic cirrhosis
Sleep apnea
Super morbid obesity
Hypoalbuminemia
delirium
Plan:
-creatinine at 1.2, baseline
-IVF today still
-hemodynamically more stable
-holding on lasix today
-encourage po intake
-follow BMP/UOP
-check random bladder scan
-
-
Date of Service: December 11, 2023
CC / HPI / ROS
-
Chief Complaint:
oliguria
History of Present Illness:
Na stable normal
Cr stable 1.2
po intake low still
Review of Systems:
no CP/SOB
uop ?
Labs
-
Labs:
WBC 3.1 10^3/uL (4.8-10.8) L 12/11/23 04:22
RBC 3.12 10^6/uL (4.20-5.40) L 12/11/23 04:22
Hgb 10.6 g/dL (12.0-16.0) L 12/11/23 04:22
Hct 32.0 % (37.0-47.0) L 12/11/23 04:22
Plt Count 55 10^3/uL (130-400) L 12/11/23 04:22
Sodium 140 mmol/L (135-145) 12/11/23 04:22
Potassium 4.5 mmol/L (3.5-5.1) 12/11/23 04:22
Chloride 108 mmol/L (98-107) H 12/11/23 04:22
Carbon Dioxide 26 mmol/L (22-30) 12/11/23 04:22
BUN 33 mg/dl (7-17) H 12/11/23 04:22
Creatinine 1.2 mg/dL (0.6-1.0) H 12/11/23 04:22
eGFR 43.54 12/11/23 04:22
Glucose 75 mg/dl (70-99) 12/11/23 04:22
Calcium 8.9 mg/dl (8.4-10.2) 12/11/23 04:22
Albumin 2.3 g/dl (3.5-5.0) L 12/11/23 04:22
Physical Exam
-
Vital Signs:
Vital Signs
Temp Pulse Resp BP Pulse Ox
96.4 F L 66 12 108/57 97
12/11/23 09:00 12/11/23 09:13 12/11/23 06:00 12/11/23 09:13 12/11/23 06:00
Cardiovascular:: Regular rate and rhythm
Respiratory:: Bilateral: Coarse
Lung Excursion:: Normal
Abdomen:: Nontender
Extremity Edema:: +1: Bilateral:
[2023-12-11 12:28] LABS: Glucose - Point of Care 86 mg/dl (70-99)
[2023-12-11] MEDS: NSS 1000 IV (12:44)
[2023-12-11] MEDS: STERILE WATER FOR INJECTION 20 ML IV (13:25)
[2023-12-11] MEDS: ROCEPHIN 2000 MG IV (13:26)
--- NOTE | 2023-12-11 13:55 | W.PN.ID1 ---
Date of Service
Date of Service: December 11, 2023
Today's Communication
See below.
Assessment / Plan
# Daptomycin associated hallucinations resolved off the drug.
# Hypothermia and hypotension, waxing and waning
- Hypotension resolved.
- blood cultures neg to date
-Straight cath for urine appears contaminated specimen >sq epith cells. Pt without urinary symptoms.
Ucx: ONLY 10,000 CFU VRE, not consistent with UTI. VRE colonization of urine.
No need to treat yeast in urine.
Can repeat UA/reflex Ucx.
- Follow temps.
# T8-T9 discitis/osteo without abscess
� � - 10/28/23 Group B strep bacteremia (2 sets bcx)
� � -TTE no gross vegetation
-CRP overall trending down 151 -> 69.5 -> 40 -> 43 -> 48.
� - 11/27 repeat MRI showed worsening T8-T9 discitis/osteo, moderate amt of phlegmon with mild spinal cord compression. Increase in paraspinal soft tissue edema/inflammation.
-Transferred to [facility] 11/28 to 12/06. No surgical intervention
-Was receiving ceftriaxone 2gIV q24h, planned for 6 weeks through 12/11/23 then po abx. Ceftriaxone replaced with Daptomycin at [facility] to complete till 12/11.
- DC'd daptomycin 12/08/23 -> replace with cefepime -> dc'd 12/10 -> ceftriaxone till 12/11
- Completed 6 weeks of IV antibiotic.
- Tomorrow start po cefuroxime 500mg po bid x 6 more weeks.
-Prescribed benzonate for persistent cough. (cough exacerbating her back pain).
#Additional Past Medical History:
GBS bacteremia, T8-T9 discitis/osteo tx with 6 weeks IV abx through 12/11/23.
Diabetes mellitus
Cirrhosis/COPE
sleep apnea on CPAP
Class III obesity BMI 54
CKD3b
Liver nodule (benign by Abd MRI)
Thrombocytopenia due to cirrhosis
Meningioma
Cholecystectomy
B TKA
Chief Complaint
-: Other (Hallucinations)
Subjective / Review of Systems
Sons at bedside.
Under Bare Hugger.
c/o cough exacerbates her back pain.
No hallucinations.
Vital Signs / Physical Exam
Vital Signs
Vital Signs
Temp Pulse Resp BP Pulse Ox
97.1 F 73 10 139/88 96
12/11/23 12:00 12/11/23 10:00 12/11/23 10:00 12/11/23 10:00 12/11/23 10:03
Physical Exam
Constitutional: Non-toxic
Extremities: Edema
Neurological: AO x 3
Objective Data
Lab Data
Lab Results
12/11/23 04:22
12/11/23 04:22
PT 16.4 Sec (11.4-14.6) H 12/10/23 04:11
INR 1.34 12/10/23 04:11
Estimated Creat Clear 41 ml/min 12/11/23 04:22
Lactic Acid Cancelled 12/08/23 14:00
Total Bilirubin 0.9 mg/dl (0.2-1.3) 12/11/23 04:22
AST 77 U/L (14-36) H 12/11/23 04:22
ALT 45 U/L (0-35) H 12/11/23 04:22
Alkaline Phosphatase 343 U/L (38-126) H 12/11/23 04:22
C-Reactive Protein 79.70 mg/L (0.0-10.00) H 12/09/23 03:53
Most recent labs reviewed.
Micro Results:
12/08/23 13:11 Urine Culture - Final
Urine Enterococcus faecium - VRE
Yeast
12/08/23 11:11 Blood Culture - Preliminary
Blood/Venous No Growth in 72 hours- Final report to follow
12/08/23 10:01 Blood Culture - Preliminary
Blood/Venous No Growth in 72 hours- Final report to follow
12/08/23 17:44 MRSA Screen - Final
Nose No Methicillin Resistant Staphylococcus aureus isolated.
12/08/23 CXR: Right PICC line with tip in the SVC, most likely the distal SVC. Extremely low lung volumes with crowding of central/vascular markings.
[2023-12-11] MEDS: DUONEB 3 ML INH (14:33)
--- NOTE | 2023-12-11 17:01 | CM ---
Patient from [facility] with Dx TME, hypothermia, Enterococcus UTI (VRE), T8-T9 discitis/osteo without abscess. Contact Precautions. O2 2L. PT & OT recommend skilled rehab. Per nurse assessment; confused.
Referral in [facility] for [facility].
Phone call to Jackie, [facility]; left message inquiring if bed available for patient to return.
Plan follow up with patient's son for d/c planning.
Plan follow up with [facility] for acceptance.
[2023-12-11 17:17] LABS: Urine Albumin Trace (Neg - Trace); Urine Bilirubin Negative (Negative); Urine Character Clear (Clear); Urine Color Yellow; Urine Glucose Negative (Negative); Urine Ketone Trace (Negative); Urine Leukocyte 2+ (Negative); Urine Nitrite Negative (Negative); Urine Occult Blood 3+ (Negative); Urine Urobilinogen Negative (Neg - 1+)
[2023-12-11 17:25] LABS: Glucose - Point of Care 87 mg/dl (70-99)
[2023-12-11 17:26] LABS: Urine Bacteria Many (Negative); Urine White Cell 80-90 /HPF (0-5); Urine Yeast Many (Negative)
[2023-12-11] MEDS: TESSALON PERLES 100 MG PO (20:07)
[2023-12-11] MEDS: ZYPREXA 5 MG PO (20:07)
[2023-12-11 21:48] LABS: Glucose - Point of Care 91 mg/dl (70-99)
[2023-12-12] VITALS (13 sets, daily range): BP systolic 98–148; BP diastolic 51–95; BMI 54.7
[2023-12-12] MEDS: NSS 1000 IV ×2 (01:15→12:50)
[2023-12-12] MEDS: SYNTHROID 88 MCG PO (04:51)
[2023-12-12 05:33] LABS: % Eosinophils 11.7 % (0-6); % Monocytes 19.1 % (1.7-9.3); % Neutrophils 56.2 % (42.2-75.2); Absolute Eosinophils 0.4 10^3/uL (0-0.7); Absolute Lymphocytes 0.3 10^3/uL (1.2-3.4); Absolute Monocytes 0.6 10^3/uL (0.1-0.6); Absolute Neutrophils 1.7 10^3/uL (1.4-6.5); Hematocrit 32.9 % (37.0-47.0); Hemoglobin 10.9 g/dL (12.0-16.0); Mean Corp Hgb Conc. 33.1 g/dL (33.0-37.0); Mean Corpuscular Hgb 34.4 pg (27.0-31.0); Mean Corpuscular Volume 103.8 fL (81.0-99.0); Mean Platelet Volume 11.4 fL (7.4-10.4); Nucleated Red Blood Cells % 0 %; Platelet Count 53 10^3/uL (130-400); Red Blood Cell Count 3.17 10^6/uL (4.20-5.40); Red Cell Dist. Width 14.9 % (11.5-14.5); White Blood Cell Count 3.1 10^3/uL (4.8-10.8)
[2023-12-12 06:01] LABS: ALT (SGPT) 49 U/L (0-35); AST (SGOT) 87 U/L (14-36); Albumin 2.5 g/dl (3.5-5.0); Alkaline Phosphatase 392 U/L (38-126); Blood Urea Nitrogen 31 mg/dl (7-17); Calcium 8.6 mg/dl (8.4-10.2); Carbon Dioxide 25 mmol/L (22-30); Chloride 114 mmol/L (98-107); Estimated Creatinine Clearance 50 ml/min; Glucose 76 mg/dl (70-99); Potassium 4.6 mmol/L (3.5-5.1); Sodium 139 mmol/L (135-145); Total Bilirubin 0.7 mg/dl (0.2-1.3); Total Protein 5.3 g/dl (6.3-8.2); eGFR 54.19
[2023-12-12 08:18] LABS: Glucose - Point of Care 68 mg/dl (70-99)
[2023-12-12 08:38] LABS: Glucose - Point of Care 88 mg/dl (70-99)
[2023-12-12] MEDS: PROTONIX 40 MG PO (08:54)
[2023-12-12] MEDS: ASPIR LOW (ENTERIC COATED) 81 MG PO (08:54)
[2023-12-12] MEDS: DUPHALAC/CHRONULAC 10 GRAMS PO ×2 (08:54→16:07)
[2023-12-12] MEDS: MIRALAX 17 GRAMS PO (08:54)
[2023-12-12] MEDS: COREG 3.125 MG PO ×2 (08:55→19:37)
[2023-12-12] MEDS: OCUVITE SOFTGEL 1 CAP PO ×2 (08:55→19:37)
[2023-12-12] MEDS: OSCAL 500 + D 500 MG PO (08:55)
[2023-12-12] MEDS: CEFTIN 500 MG PO ×2 (08:55→19:37)
[2023-12-12] MEDS: MAG-TAB SR 84 MG PO (08:56)
[2023-12-12] MEDS: TESSALON PERLES 100 MG PO ×2 (08:56→19:37)
[2023-12-12] MEDS: THERAGRAN 1 TABLET PO (08:56)
[2023-12-12] MEDS: VISBIOME 1 CAP PO (08:56)
[2023-12-12] MEDS: DESENEX/MITRAZOL/ZEASORB 1 APPLIC TOPICAL ×2 (09:07→19:37)
--- NOTE | 2023-12-12 10:05 | W.PN.HOSP.TC ---
Today's Communication/Plan
-
continue oral abx
monitor BG, encourage oral intake
discontinue zyprexa
jose carlos hugger as needed
Assessment / Plan
Assessment / Plan
Toxic metabolic encephalopathy:
-Waxing and waning in nature at this point
-Question secondary to daptomycin side effect versus UTI related versus hypothermia
-Likely due to medication, daptomycin; also ?probably new infection (enterococcus UTI). Currently on IV ceftriaxone. ID on consult--> follow-up their recommendations.
-History of Cope cirrhosis, ammonia level within normal limit
-CT head was normal admission
-Patient takes trazodone and Zyprexa, holding nighttime Zyprexa
Hypothermia:
-On Jose Carlos hugger
-Normal TSH, 2.16
-Normal cortisol, 22.3
-Blood cultures no growth so far.
-Abnormal urinalysis and cultures with Enterococcus and yeast, the latter probably contaminant.
-Zyprexa discontinued as may cause thermal dysregulation
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
-On IV Ceftriaxone 2 gr daily now. As per ID plan to continue ceftriaxone through 12/11 and then oral cefuroxime 500 mg twice a day for 6 more weeks.
-Prior to admission on IV daptomycin and then switched to Cefepime and now Ceftriaxone.
-CRP 79 this admission
-Initial MRI on 11/02 with T8/9 discitis. Follow-up MRI on 11/27 describing worsening and probably epidural abscess. At [place] upon transfer no need for surgical intervention but will be reevaluated with follow-up images.
-Transthoracic echo from 10/31 no vegetations.
-Follow-up ID recommendations
Enterococcus UTI (VRE)
-CFU only 10K and likely not causing significant problems
-ID managing antibiotics and have appreciated.
Chronic kidney disease
-Creatinine has normal at this point
-Restarted IV fluids yesterday by nephro
-Cont to monitor urine output closely
-Nephrology has signed off.
Chronic hypercapnic respiratory failure
Obstructive sleep apnea
Possible obesity hypoventilation syndrome
-Repeated chest x-ray--> atelectasis but otherwise unremarkable for acute findings
-Reviewed venous blood gas upon admission and compared to prior blood gases.
-Can use BiPAP if needed.
-Continue to monitor respiratory status closely
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
-Resume diuretics when nephro clear her
-Resumed lactulose
-Monitor LFTs adn INR
-Normal ammonia
Hypertension:
-Continue home antihypertensive monitor blood pressure
Paroxysmal A-fib:
-Continue beta-blockers
-Continue cardiac monitoring
Diabetes mellitus type 2:
-Diabetic diet
-Start insulin sliding scale
-Hemoglobin A1c 5.7 on 10/29/2023. No need to update until 3 months past.
-Monitor blood sugars and adjust medications accordingly
Hypothyroidism:
-Resume thyroid replacement
GERD:
-Resume PPI
Morbid obesity:
-Lifestyle changes modifications
Mood disorder/History of agitation in the past:
-Resume trazodone and Zyprexa.
DVT prophylaxis: -SCDs -No pharmacologic prophylaxis due to thrombocytopenia
CODE STATUS:-DNR
Total time spent : 55 mins
I personally saw and examined the patient.
I have reviewed all diagnostic interpretations and treatment plans as written.
Time includes patient management by me, time spent at the patients bedside, time to review lab and imaging results, discussing patient care, documentation in the medical record, and time spent with the family or caregiver and discussing care plan
with RN/Consultants.
Anticipated Discharge: 24 - 48 hours
Subjective/Interval History
-
Date of Service: December 12, 2023
having some LE pain/tingling
denies back pain
Objective Data
-
Labs:
Laboratory Results
12/12/23
04:46
WBC 3.1 L
Hgb 10.9 L
Hct 32.9 L
Plt Count 53 L
PT 16.0 H
INR 1.30
Sodium 139
Potassium 4.6
Chloride 114 H
Carbon Dioxide 25
BUN 31 H
Creatinine 1.0
Glucose 76
Calcium 8.6
Total Bilirubin 0.7
AST 87 H
ALT 49 H
Alkaline Phosphatase 392 H
Vital Signs:
Vital Signs
Temp Pulse Resp BP Pulse Ox
97.0 F 91 12 121/79 96
12/12/23 08:00 12/12/23 08:55 12/12/23 06:00 12/12/23 08:55 12/12/23 06:00
I&O
12/11/23 12/12/23 12/13/23
06:59 06:59 06:59
Intake Total 1899 / 1899 1080 / 1080
Output Total 100 / 100
Balance 1899 980 / 980
Review of Systems
-
All other systems: Reviewed and negative
Physical Exam
-
General: Negative Respiratory Distress
HEENT: Oxygen
Respiratory: Clear to Auscultation
Cardiac: Regular Rhythm and S1/S2; Negative Murmur
GI: Soft, Nontender and Nondistended
Musculoskeletal: No Edema
Neuro: Awake, Alert and Oriented
--- NOTE | 2023-12-12 10:55 | W.PN.ID1 ---
Addendum entered and electronically signed by Sana Barbosa MD 12/12/23 11:10:
Reviewed med list. Olanzapine was started at [facility] for hallucinations/mental status change.
Olanzapine can potentially impair thermoregulation.
Consider dc Olanzapine. Discussed with hospitalist, Dr. Thompson.
Original Note:
Date of Service
Date of Service: December 12, 2023
Today's Communication
Continue cefuroxime.
Assessment / Plan
# Daptomycin associated hallucinations resolved off the drug.
# Hypotension resolved
# Hypothermia - persists, unclear source
- blood cultures neg
-Straight cath for urine appears contaminated specimen >sq epith cells. Pt without urinary symptoms.
Ucx: ONLY 10,000 CFU VRE, not consistent with UTI. VRE colonization of urine.
No need to treat yeast in urine.
# T8-T9 discitis/osteo without abscess
� � - 10/28/23 Group B strep bacteremia (2 sets bcx)
� � -TTE no gross vegetation
-CRP overall trending down 151 -> 69.5 -> 40 -> 43 -> 48.
� - 11/27 repeat MRI showed worsening T8-T9 discitis/osteo, moderate amt of phlegmon with mild spinal cord compression. Increase in paraspinal soft tissue edema/inflammation.
-Transferred to [facility] 11/28 to 12/06. No surgical intervention
-Was receiving ceftriaxone 2gIV q24h, planned for 6 weeks through 12/11/23 then po abx. Ceftriaxone replaced with Daptomycin at [facility] to complete till 12/11.
- DC'd daptomycin 12/08/23 -> replace with cefepime -> dc'd 12/10 -> ceftriaxone till 12/11
- Completed 6 weeks of IV antibiotic.
- Continue po cefuroxime 500mg po bid x 6 more weeks through 01/22/24
- Continue benzonate for persistent cough. (cough exacerbating her back pain).
# ANGELA resolved
#Additional Past Medical History:
GBS bacteremia, T8-T9 discitis/osteo tx with 6 weeks IV abx through 12/11/23.
Diabetes mellitus
Cirrhosis/COPE
sleep apnea on CPAP
Class III obesity BMI 54
CKD3b
Liver nodule (benign by Abd MRI)
Thrombocytopenia due to cirrhosis
Meningioma
Cholecystectomy
B TKA
Chief Complaint
-: Other (Hallucinations)
Subjective / Review of Systems
Son at bedside. Patient sleeping more during the day. More alert at dinnertime.
Currently sleeping.
Vital Signs / Physical Exam
Vital Signs
Vital Signs
Temp Pulse Resp BP Pulse Ox
97.0 F 91 12 121/79 96
12/12/23 08:00 12/12/23 08:55 12/12/23 06:00 12/12/23 08:55 12/12/23 06:00
Physical Exam
Constitutional: Comfortable
Cardiovascular: Regular Rate and S1/S2
Gastrointestinal: Soft, Non Tender and Non Distended
Extremities: Edema
Objective Data
Lab Data
Lab Results
12/12/23 04:46
12/12/23 04:46
PT 16.0 Sec (11.4-14.6) H 12/12/23 04:46
INR 1.30 12/12/23 04:46
Estimated Creat Clear 50 ml/min 12/12/23 04:46
Lactic Acid Cancelled 12/08/23 14:00
Total Bilirubin 0.7 mg/dl (0.2-1.3) 12/12/23 04:46
AST 87 U/L (14-36) H 12/12/23 04:46
ALT 49 U/L (0-35) H 12/12/23 04:46
Alkaline Phosphatase 392 U/L (38-126) H 12/12/23 04:46
C-Reactive Protein 79.70 mg/L (0.0-10.00) H 12/09/23 03:53
Most recent labs reviewed.
Micro Results:
12/08/23 10:01 Blood Culture - Preliminary
Blood/Venous No Growth in 4 days- Final report to follow
12/11/23 17:06 Urine Culture - Pending
Urine
12/08/23 13:11 Urine Culture - Final
Urine Enterococcus faecium - VRE
Yeast
12/08/23 11:11 Blood Culture - Preliminary
Blood/Venous No Growth in 72 hours- Final report to follow
12/08/23 17:44 MRSA Screen - Final
Nose No Methicillin Resistant Staphylococcus aureus isolated.
12/08/23 CXR: Right PICC line with tip in the SVC, most likely the distal SVC. Extremely low lung volumes with crowding of central/vascular markings.
--- NOTE | 2023-12-12 11:48 | W.PN.NEPH.PH ---
Today's Communication / Plan
-
sign off
Assessment/Plan
-
Assessment:
CKD3a/jrenal cysts
Hypotension
Sepsis with strep bacteremia (diskitis) recent
Thrombocytopenia
Liver lesion with hepatic cirrhosis
Sleep apnea
Super morbid obesity
Hypoalbuminemia
delirium
Plan:
-creatinine at 1.0, baseline
-hemodynamically more stable
-holding on lasix today
-encourage po intake
-follow BMP/UOP
-checked random bladder scan
-sign off
-
-
Date of Service: December 12, 2023
CC / HPI / ROS
-
Chief Complaint:
oliguria
History of Present Illness:
Na stable normal
Cr stable 1.0
po intake low still
Review of Systems:
no CP/SOB
uop 600cc
Labs
-
Labs:
WBC 3.1 10^3/uL (4.8-10.8) L 12/12/23 04:46
RBC 3.17 10^6/uL (4.20-5.40) L 12/12/23 04:46
Hgb 10.9 g/dL (12.0-16.0) L 12/12/23 04:46
Hct 32.9 % (37.0-47.0) L 12/12/23 04:46
Plt Count 53 10^3/uL (130-400) L 12/12/23 04:46
Sodium 139 mmol/L (135-145) 12/12/23 04:46
Potassium 4.6 mmol/L (3.5-5.1) 12/12/23 04:46
Chloride 114 mmol/L (98-107) H 12/12/23 04:46
Carbon Dioxide 25 mmol/L (22-30) 12/12/23 04:46
BUN 31 mg/dl (7-17) H 12/12/23 04:46
Creatinine 1.0 mg/dL (0.6-1.0) 12/12/23 04:46
eGFR 54.19 12/12/23 04:46
Glucose 76 mg/dl (70-99) 12/12/23 04:46
Calcium 8.6 mg/dl (8.4-10.2) 12/12/23 04:46
Albumin 2.5 g/dl (3.5-5.0) L 12/12/23 04:46
Physical Exam
-
Vital Signs:
Vital Signs
Temp Pulse Resp BP Pulse Ox
97.0 F 63 8 117/60 98
12/12/23 08:00 12/12/23 10:00 12/12/23 10:00 12/12/23 10:00 12/12/23 11:22
Cardiovascular:: Regular rate and rhythm
Respiratory:: Bilateral: Coarse
Lung Excursion:: Normal
Abdomen:: Distended, Nontender and Soft
Bowel Sounds:: Decreased
Extremity Edema:: +1: Bilateral:
Boateng Catheter: No
[2023-12-12 11:53] LABS: Glucose - Point of Care 106 mg/dl (70-99)
--- NOTE | 2023-12-12 13:32 | PTCARENOTE ---
Addendum entered by Elida Wooten RN 12/12/23 14:32:
Ammonia 26. ABG: Ph 7.33, pCO2 49. Patient more awake and conversing with son.
Original Note:
Patient more drowsy/lethargic at this time than she was this morning. She is still able to say she is in the hospital and give her , still able to follow commands (moving extremities/squeezing both hands with equal strength) and and BRIONNA=2. BP
117?66, HR 69, accu check 106. She then complained to her son that she could not catch her breath; POx 97% on 2l n/c. Creat 1.0 this morning and patient voided 500ml. Dr Thompson notified via tiger text; ABGs and ammonia level ordered. Ammonia level
obtained by this nurse via PICC and sent to lab. Resp therapist notified via tiger text of ABG order. Patient's other son currently at bedside and stated patient has been more drowsy in the afternoon lately. She just opened her eyes spontaneously.
[2023-12-12 13:53] LABS: Ammonia 26 umol/L (9-30)
[2023-12-12 14:00] LABS: B.E. -0.5 mmol/L; HCO3 25.8 mmol/L (21-28); O2 Saturation % 95.7 % (94-98); PCO2 49 mmHg (32-35); PO2 100 mmHg (83-108); pH 7.33 (7.35-7.45)
--- NOTE | 2023-12-12 15:22 | CM ---
CM left voicemail for Jackie at [facility] regarding bed availability regarding patient returning to SNF when medically stable and if patient will require an auth. Per PT note from today, therapy on hold due to continued hypothermia
and need for jose carlos bugger. CM will continue to follow for discharge planning needs.
Plan; return to [facility], awaiting return call from Jackie to see if patient will require auth to return.
[2023-12-12 17:25] LABS: Glucose - Point of Care 63 mg/dl (70-99)
[2023-12-12 17:47] LABS: Glucose - Point of Care 88 mg/dl (70-99)
[2023-12-12] MEDS: MYLICON 80 MG PO (18:04)
[2023-12-12 19:46] LABS: Glucose - Point of Care 82 mg/dl (70-99)
[2023-12-12] MEDS: DUONEB 3 ML INH (19:50)
[2023-12-12 21:34] LABS: Glucose - Point of Care 93 mg/dl (70-99)
[2023-12-13] VITALS (15 sets, daily range): BP systolic 99–148; BP diastolic 64–121; PULSE 67; O2SAT 94–97; BMI 56.0
--- NOTE | 2023-12-13 03:08 | PTCARENOTE ---
assumed care of patient- pt drowsy but easily arousable- stomach was feeling gassy for day shift- stated her stomach felt better now. pt appears SOB at rest and wheezy- when pt is asked if she feels SOB pt denies. q2t- on 2L NC- 95%. PW intact- pt
admits to poor appetite. care ongoing.
[2023-12-13 03:09] LABS: Glucose - Point of Care 80 mg/dl (70-99)
[2023-12-13] MEDS: SYNTHROID 88 MCG PO (06:08)
[2023-12-13 07:42] LABS: Glucose - Point of Care 69 mg/dl (70-99)
[2023-12-13] MEDS: MYLICON 80 MG PO (08:04)
[2023-12-13] MEDS: OCUVITE SOFTGEL 1 CAP PO ×2 (08:04→20:11)
[2023-12-13] MEDS: OSCAL 500 + D 500 MG PO (08:04)
[2023-12-13] MEDS: PROTONIX 40 MG PO (08:04)
[2023-12-13] MEDS: CEFTIN 500 MG PO ×2 (08:05→20:11)
[2023-12-13] MEDS: TESSALON PERLES 100 MG PO ×2 (08:05→20:11)
[2023-12-13 08:14] LABS: Glucose - Point of Care 93 mg/dl (70-99)
[2023-12-13] MEDS: DUPHALAC/CHRONULAC 10 GRAMS PO (08:16)
[2023-12-13] MEDS: ROXICODONE 2.5 MG PO (08:16)
[2023-12-13] MEDS: THERAGRAN 1 TABLET PO (08:17)
[2023-12-13] MEDS: MIRALAX 17 GRAMS PO (08:17)
[2023-12-13] MEDS: ASPIR LOW (ENTERIC COATED) 81 MG PO (08:17)
[2023-12-13] MEDS: COREG 3.125 MG PO ×2 (08:17→20:11)
[2023-12-13] MEDS: VISBIOME 1 CAP PO (08:17)
[2023-12-13] MEDS: MAG-TAB SR 84 MG PO (08:17)
[2023-12-13] MEDS: DESENEX/MITRAZOL/ZEASORB 1 APPLIC TOPICAL ×2 (08:22→20:11)
[2023-12-13 08:54] LABS: Hematocrit 33.6 % (37.0-47.0); Hemoglobin 10.9 g/dL (12.0-16.0); Mean Corp Hgb Conc. 32.4 g/dL (33.0-37.0); Mean Corpuscular Hgb 34.4 pg (27.0-31.0); Mean Platelet Volume 12.2 fL (7.4-10.4); Platelet Count 47 10^3/uL (130-400); Red Blood Cell Count 3.17 10^6/uL (4.20-5.40); Red Cell Dist. Width 15.1 % (11.5-14.5); White Blood Cell Count 3.9 10^3/uL (4.8-10.8)
[2023-12-13 09:16] LABS: Blood Urea Nitrogen 29 mg/dl (7-17); Calcium 9.1 mg/dl (8.4-10.2); Carbon Dioxide 28 mmol/L (22-30); Chloride 110 mmol/L (98-107); Estimated Creatinine Clearance 56 ml/min; Glucose 92 mg/dl (70-99); Potassium 4.6 mmol/L (3.5-5.1); Sodium 141 mmol/L (135-145); eGFR > 60.00
[2023-12-13 11:03] LABS: Glucose - Point of Care 72 mg/dl (70-99)
--- NOTE | 2023-12-13 11:06 | CM ---
met with patient and son alexa at bedside.patient with a low bp,low po intake.patient is not eating due to somnolence.she continues with po ceftin,nebs,nc o2 at 2 liters,cr at baseline, son alexa indicated he had spoken with krystin at [facility]
[place] and patient is on a bed hold.i have called and left [facility] for krystin to return my call to find out if auth is needed when patient returns to facility.
--- NOTE | 2023-12-13 13:50 | W.PN.HOSP.TC ---
Addendum entered and electronically signed by Rick Thompson MD 12/14/23 07:33:
Documentation addendum in request of MIGEL jacobs
Sepsis has ruled out
-Leukopenia somewhat persistent
-Hypothermic despite on appropriate IV abx for 6 weeks and hypothermia likely from non-infectious causes ( poor oral intake, hypoglycemia, medication side effects etc)
-Encephalopathy likely explained by hypothermia/hypoglycemia/pain meds need
Original Note:
Today's Communication/Plan
-
continue abx
liberalize to reg diet
hospice consult - ID discussed
Assessment / Plan
Assessment / Plan
Toxic metabolic encephalopathy:
-Waxing and waning in nature at this point
-Question secondary to daptomycin side effect versus UTI related versus hypothermia
-Likely due to medication, daptomycin; also ?probably new infection (enterococcus UTI). Currently on IV ceftriaxone. ID on consult--> follow-up their recommendations.
-History of Cope cirrhosis, ammonia level within normal limit
-CT head was normal admission
-Patient takes trazodone and Zyprexa, holding nighttime Zyprexa
Hypothermia:
-On Franki hugger
-Normal TSH, 2.16
-Normal cortisol, 22.3
-Blood cultures no growth so far.
-Abnormal urinalysis and cultures with Enterococcus and yeast, the latter probably contaminant.
-Zyprexa discontinued as may cause thermal dysregulation
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
-On IV Ceftriaxone 2 gr daily now. As per ID plan to continue ceftriaxone through 12/11 and then oral cefuroxime 500 mg twice a day for 6 more weeks.
-Prior to admission on IV daptomycin and then switched to Cefepime and now Ceftriaxone.
-CRP 79 this admission
-Initial MRI on 11/02 with T8/9 discitis. Follow-up MRI on 11/27 describing worsening and probably epidural abscess. At [place] upon transfer no need for surgical intervention but will be reevaluated with follow-up images.
-Transthoracic echo from 10/31 no vegetations.
-Follow-up ID recommendations
Enterococcus UTI (VRE)
-CFU only 10K and likely not causing significant problems
-ID managing antibiotics and have appreciated.
Chronic kidney disease
-Creatinine has normal at this point
-Restarted IV fluids yesterday by nephro
-Cont to monitor urine output closely
-Nephrology has signed off.
Chronic hypercapnic respiratory failure
Obstructive sleep apnea
Possible obesity hypoventilation syndrome
-Repeated chest x-ray--> atelectasis but otherwise unremarkable for acute findings
-Reviewed venous blood gas upon admission and compared to prior blood gases.
-Can use BiPAP if needed.
-Continue to monitor respiratory status closely
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
-Resume diuretics when nephro clear her
-Resumed lactulose
-Monitor LFTs adn INR
-Normal ammonia
Hypertension:
-Continue home antihypertensive monitor blood pressure
Paroxysmal A-fib:
-Continue beta-blockers
-Continue cardiac monitoring
Diabetes mellitus type 2:
-Changed to regular diet with poor oral intake
-Start insulin sliding scale
-Hemoglobin A1c 5.7 on 10/29/2023. No need to update until 3 months past.
-Monitor blood sugars and adjust medications accordingly
Hypothyroidism:
-Resume thyroid replacement
GERD:
-Resume PPI
Morbid obesity:
-Lifestyle changes modifications
Mood disorder/History of agitation in the past:
-Resume trazodone and Zyprexa.
DVT prophylaxis: -SCDs -No pharmacologic prophylaxis due to thrombocytopenia
CODE STATUS:-DNR
Discussed with Patient Family at Bedside
ID discussed and recommended hospice.
Anticipated Discharge: Today
Subjective/Interval History
-
Date of Service: December 13, 2023
Patient comfortable in bed
Patient stated/confused although communicating at times
Poor oral intake
Objective Data
-
Labs:
Laboratory Results
12/13/23
08:32
WBC 3.9 L
Hgb 10.9 L
Hct 33.6 L
Plt Count 47 L
Sodium 141
Potassium 4.6
Chloride 110 H
Carbon Dioxide 28
BUN 29 H
Creatinine 0.9
Glucose 92
Calcium 9.1
Vital Signs:
Vital Signs
Temp Pulse Resp BP Pulse Ox
95.4 F L 63 9 99/70 93
12/13/23 11:00 12/13/23 10:00 12/13/23 10:00 12/13/23 10:00 12/13/23 10:03
I&O
12/12/23 12/13/23 12/14/23
06:59 06:59 06:59
Intake Total 1080 / 1080
Output Total 100 / 100 750 / 750
Balance 980 / 980 -750 / -750
Review of Systems
-
Respiratory: Reports No Symptoms
Cardiac: Reports No Symptoms
Abdomen/GI: Reports No Symptoms
Physical Exam
-
General: Negative Respiratory Distress
HEENT: Oxygen
Respiratory: Clear to Auscultation
Cardiac: Regular Rhythm and S1/S2; Negative Murmur
GI: Soft, Nontender and Nondistended
Musculoskeletal: No Edema
Neuro: Awake, Alert and Oriented
--- NOTE | 2023-12-13 13:52 | W.PN.ID1 ---
Date of Service
Date of Service: December 13, 2023
Today's Communication
Hospice Consult.
Assessment / Plan
# Daptomycin associated hallucinations resolved off the drug.
# Hypotension resolved
# Hypothermia - persists, unclear source
- blood cultures neg
-Straight cath for urine appears contaminated specimen >sq epith cells. Pt without urinary symptoms.
Ucx: ONLY 10,000 CFU VRE, not consistent with UTI. VRE colonization of urine.
Repeat Ucx again <100,000 CFU VRE.
No need to treat yeast in urine.
# T8-T9 discitis/osteo without abscess
� � - 10/28/23 Group B strep bacteremia (2 sets bcx)
� � -TTE no gross vegetation
-CRP overall trending down 151 -> 69.5 -> 40 -> 43 -> 48.
� - 11/27 repeat MRI showed worsening T8-T9 discitis/osteo, moderate amt of phlegmon with mild spinal cord compression. Increase in paraspinal soft tissue edema/inflammation.
-Transferred to [facility] 11/28 to 12/06. No surgical intervention
-Was receiving ceftriaxone 2gIV q24h, planned for 6 weeks through 12/11/23 then po abx. Ceftriaxone replaced with Daptomycin at [facility] to complete till 12/11.
- DC'd daptomycin 12/08/23 -> replace with cefepime -> dc'd 12/10 -> ceftriaxone till 12/11
- Completed 6 weeks of IV antibiotic.
- Planned for po cefuroxime 500mg po bid x 6 more weeks through 01/22/24, however pt unable to take po.
# Failure to thrive, poor po intake, weak.
Pt overall declining.
She is hospice appropriate.
Sons have decided on hospice. Patient had wished the same to son earlier.
Will order Hospice Consult.
#Additional Past Medical History:
GBS bacteremia, T8-T9 discitis/osteo tx with 6 weeks IV abx through 12/11/23.
Diabetes mellitus
Cirrhosis/COPE
sleep apnea on CPAP
Class III obesity BMI 54
CKD3b
Liver nodule (benign by Abd MRI)
Thrombocytopenia due to cirrhosis
Meningioma
Cholecystectomy
B TKA
Chief Complaint
-: Other (Hallucinations)
Subjective / Review of Systems
Sons at bedside. Patient sleeps a lot. She is not taking any po's including meds. Still with back pain with movement.
This morning, patient expressed to son, she doesn't want to continue like this and ready to pass.
Vital Signs / Physical Exam
Vital Signs
Vital Signs
Temp Pulse Resp BP Pulse Ox
95.4 F L 63 9 99/70 93
12/13/23 11:00 12/13/23 10:00 12/13/23 10:00 12/13/23 10:00 12/13/23 10:03
Physical Exam
Constitutional: Comfortable and Other (Sleeping)
Cardiovascular: Regular Rate and S1/S2
Pulmonary: Clear
Gastrointestinal: Soft, Non Tender and Non Distended
Extremities: Edema
Neurological: Other (Drowsy)
Objective Data
Lab Data
Lab Results
12/13/23 08:32
12/13/23 08:32
PT 16.0 Sec (11.4-14.6) H 12/12/23 04:46
INR 1.30 12/12/23 04:46
Estimated Creat Clear 56 ml/min 12/13/23 08:32
Lactic Acid Cancelled 12/08/23 14:00
Total Bilirubin 0.7 mg/dl (0.2-1.3) 12/12/23 04:46
AST 87 U/L (14-36) H 12/12/23 04:46
ALT 49 U/L (0-35) H 12/12/23 04:46
Alkaline Phosphatase 392 U/L (38-126) H 12/12/23 04:46
C-Reactive Protein 79.70 mg/L (0.0-10.00) H 12/09/23 03:53
Most recent labs reviewed.
Micro Results:
12/08/23 11:11 Blood Culture - Final
Blood/Venous No Growth - Final Report
12/08/23 10:01 Blood Culture - Final
Blood/Venous No Growth - Final Report
12/11/23 17:06 Urine Culture - Final
Urine Enterococcus faecium - VRE
Yeast
12/08/23 13:11 Urine Culture - Final
Urine Enterococcus faecium - VRE
Yeast
12/08/23 17:44 MRSA Screen - Final
Nose No Methicillin Resistant Staphylococcus aureus isolated.
12/08/23 CXR: Right PICC line with tip in the SVC, most likely the distal SVC. Extremely low lung volumes with crowding of central/vascular markings.
Care Review
Plan reviewed with: Physician (Dr. Liana Thompson)
[2023-12-13] MEDS: DUPHALAC/CHRONULAC PO (15:07)
[2023-12-13 15:41] LABS: Glucose - Point of Care 70 mg/dl (70-99)
[2023-12-13] MEDS: D5/0.9% SODIUM CHLORIDE 1000 IV (16:19)
--- NOTE | 2023-12-13 16:30 | PN.CDI ---
CDI
- -
CDI:
Physician Documentation Request
Admit Date: 12/08/23 12:44
Dear Doctor Jay,
Please review the following and provide your response in the progress notes.
Clinical Indicators:
Pt admitted with hallucinations/TME
Documented per ED, ' ...presenting from rehab facility for worsening delirium. ...she has been very restless over the past few days and refusing medications. She has not been eating or drinking....On arrival to emergency department patient was
found to be hypothermic with a rectal temp of 92.7.... Concern for sepsis secondary to worsening osteomyelitis/metabolic encephalopathy...Patient will require admission for severe sepsis secondary to osteomyelitis /metabolic encephalopathy.
Discussed with hospitalist....'
Documented per H&P, ' In the ED, she is hypothermic with a Franki hugger in place and obtunded....Toxic metabolic encephalopathy in the setting of hypotension, hypothermia, recent discitis, concerns for severe sepsis with reactivation of current or
new infection..IV fluids, IV antibiotics,...'
Progress notes 12/12&12/13, ' Toxic metabolic encephalopathy: ...Likely due to medication, daptomycin; also ?probably new infection (enterococcus UTI). Currently on IV ceftriaxone. ID on consult--> follow-up their recommendations....'
On admission WBC 3.1, Temp 92.7,RR 29
Please update the status of the concern for severe sepsis documented in ED/H&P:
Severe Sepsis -resolved
- Systemic manifestations of infection, with 2 or more SIRS criteria which include:
- Fever >100.4 degrees F or hypothermia < 96.8 degrees F
- Leukocytosis - WBC > 12,000 or leukopenia - WBC < 4,000 or > 10% bands
- Tachycardia > 90 beats per minute
- Tachypnea - RR > 20 breaths per minute or PaCO2 , 32mmHg
Source: Merck Manual 2013
Severe Sepsis-Ruled out
Other
Unable to Determine
Use of terms such as suspected, likely, concern for, or probable (associated with a specific diagnosis that is being evaluated, monitored, or treated as if it exists) are acceptable and can be coded in the inpatient setting, when documented at the
time of discharge.
Thank you,
Aissatou Merino RN
CDI Specialist
[employer] [employer]
Please use your independent medical judgment in providing your response.
--- NOTE | 2023-12-13 19:15 | PTCARENOTE ---
day shift note. assessment as charted. pt sleeping most of day. pt had no po intake today. blood sugars running low. dr made aware and iv fluids with dextrose started. pts sons at bedside all day and report that pt is tired of all of this and they
will be discussing hospiice care.
[2023-12-13 21:32] LABS: Glucose - Point of Care 84 mg/dl (70-99)
[2023-12-14] VITALS (17 sets, daily range): BP systolic 98–140; BP diastolic 59–105; PULSE 74–80; O2SAT 97; BMI 55.9
[2023-12-14] MEDS: DUONEB 3 ML INH ×2 (01:05→08:45)
[2023-12-14] MEDS: SYNTHROID PO (04:16)
[2023-12-14 04:17] LABS: Glucose - Point of Care 91 mg/dl (70-99)
[2023-12-14] MEDS: D5/0.9% SODIUM CHLORIDE 1000 IV ×2 (04:19→17:13)
[2023-12-14 04:42] LABS: Hematocrit 31.4 % (37.0-47.0); Hemoglobin 10.5 g/dL (12.0-16.0); Mean Corp Hgb Conc. 33.4 g/dL (33.0-37.0); Mean Corpuscular Hgb 34.5 pg (27.0-31.0); Mean Corpuscular Volume 103.3 fL (81.0-99.0); Mean Platelet Volume 11.9 fL (7.4-10.4); Platelet Count 52 10^3/uL (130-400); Red Blood Cell Count 3.04 10^6/uL (4.20-5.40); Red Cell Dist. Width 15.5 % (11.5-14.5); White Blood Cell Count 3.1 10^3/uL (4.8-10.8)
[2023-12-14 05:14] LABS: Blood Urea Nitrogen 31 mg/dl (7-17); Calcium 9.1 mg/dl (8.4-10.2); Carbon Dioxide 26 mmol/L (22-30); Chloride 110 mmol/L (98-107); Estimated Creatinine Clearance 56 ml/min; Glucose 91 mg/dl (70-99); Potassium 4.4 mmol/L (3.5-5.1); Sodium 140 mmol/L (135-145); eGFR > 60.00
[2023-12-14 08:09] LABS: Glucose - Point of Care 82 mg/dl (70-99)
--- NOTE | 2023-12-14 09:55 | W.PN.ID1 ---
Date of Service
Date of Service: December 14, 2023
Today's Communication
Hospice meeting today.
DC antibiotics when transitioned to hospice.
Call if any questions.
Assessment / Plan
# Daptomycin associated hallucinations resolved off the drug.
# Hypotension resolved
# Hypothermia - persists, unclear source
- blood cultures neg
-Straight cath for urine appears contaminated specimen >sq epith cells. Pt without urinary symptoms.
Ucx: ONLY 10,000 CFU VRE, not consistent with UTI. VRE colonization of urine.
Repeat Ucx again <100,000 CFU VRE.
No need to treat yeast in urine.
# T8-T9 discitis/osteo without abscess
� � - 10/28/23 Group B strep bacteremia (2 sets bcx)
� � -TTE no gross vegetation
-CRP overall trending down 151 -> 69.5 -> 40 -> 43 -> 48.
� - 11/27 repeat MRI showed worsening T8-T9 discitis/osteo, moderate amt of phlegmon with mild spinal cord compression. Increase in paraspinal soft tissue edema/inflammation.
-[facility]. No surgical intervention
-Was receiving ceftriaxone 2gIV q24h, planned for 6 weeks through 12/11/23 then po abx. Ceftriaxone replaced with Daptomycin at [facility] to complete till 12/11.
- DC'd daptomycin 12/08/23 -> replace with cefepime -> dc'd 12/10 -> ceftriaxone till 12/11
- Completed 6 weeks of IV antibiotic.
- Planned for po cefuroxime 500mg po bid x 6 more weeks through 01/22/24.
- DC abx at time of Hospice.
# Failure to thrive, poor po intake, weak.
Pt's condition overall declining.
She is hospice appropriate.
Sons will meet with Hospice today.
#Additional Past Medical History:
GBS bacteremia, T8-T9 discitis/osteo tx with 6 weeks IV abx through 12/11/23.
Diabetes mellitus
Cirrhosis/COPE
sleep apnea on CPAP
Class III obesity BMI 54
CKD3b
Liver nodule (benign by Abd MRI)
Thrombocytopenia due to cirrhosis
Meningioma
Cholecystectomy
B TKA
Chief Complaint
-: Other (Hallucinations)
Subjective / Review of Systems
Sons will meet with Hospice today.
Pt poor po intake. Had 2 spoonful of oatmeal and sip of water. + back pain.
Vital Signs / Physical Exam
Vital Signs
Vital Signs
Temp Pulse Resp BP Pulse Ox
96.1 F L 67 12 114/68 97
12/14/23 04:29 12/14/23 08:49 12/14/23 08:49 12/14/23 06:00 12/14/23 08:49
Physical Exam
Constitutional: Acutely Ill
Eyes: Sclera Anicteric
Cardiovascular: Regular Rate and S1/S2
Pulmonary: Clear
Gastrointestinal: Soft and Non Tender
Objective Data
Lab Data
Lab Results
12/14/23 04:13
12/14/23 04:13
PT 16.0 Sec (11.4-14.6) H 12/12/23 04:46
INR 1.30 12/12/23 04:46
Estimated Creat Clear 56 ml/min 12/14/23 04:13
Lactic Acid Cancelled 12/08/23 14:00
Total Bilirubin 0.7 mg/dl (0.2-1.3) 12/12/23 04:46
AST 87 U/L (14-36) H 12/12/23 04:46
ALT 49 U/L (0-35) H 12/12/23 04:46
Alkaline Phosphatase 392 U/L (38-126) H 12/12/23 04:46
C-Reactive Protein 79.70 mg/L (0.0-10.00) H 12/09/23 03:53
Most recent labs reviewed.
Micro Results:
12/08/23 11:11 Blood Culture - Final
Blood/Venous No Growth - Final Report
12/08/23 10:01 Blood Culture - Final
Blood/Venous No Growth - Final Report
12/11/23 17:06 Urine Culture - Final
Urine Enterococcus faecium - VRE
Yeast
12/08/23 13:11 Urine Culture - Final
Urine Enterococcus faecium - VRE
Yeast
12/08/23 17:44 MRSA Screen - Final
Nose No Methicillin Resistant Staphylococcus aureus isolated.
12/08/23 CXR: Right PICC line with tip in the SVC, most likely the distal SVC. Extremely low lung volumes with crowding of central/vascular markings.
Care Review
Plan reviewed with: Physician
Total Time Spent with Patient (in minutes): Dr. Liana Rondon.
--- NOTE | 2023-12-14 11:16 | HOSPNOTE ---
Met with sons and discussed hospice and the philosophy. The sons are in agreement to see how the patient does today and make decisions tomorrow. If hospice care is wanted then the plan would be home to the patient's apartment with 24 hour care of
back to the [facility]. Will meet with the sons and patient tomorrow morning.
[2023-12-14 11:59] LABS: Glucose - Point of Care 86 mg/dl (70-99)
[2023-12-14] MEDS: DESENEX/MITRAZOL/ZEASORB 1 APPLIC TOPICAL ×2 (13:23→20:33)
[2023-12-14] MEDS: CEFTIN PO (13:23)
[2023-12-14] MEDS: ASPIR LOW (ENTERIC COATED) PO (13:24)
[2023-12-14] MEDS: OCUVITE SOFTGEL PO ×2 (13:24→20:37)
[2023-12-14] MEDS: OSCAL 500 + D PO (13:24)
[2023-12-14] MEDS: TESSALON PERLES PO ×2 (13:24→20:37)
[2023-12-14] MEDS: PROTONIX PO (13:24)
[2023-12-14] MEDS: COREG PO (13:24)
[2023-12-14] MEDS: DUPHALAC/CHRONULAC PO ×2 (13:25→16:03)
[2023-12-14] MEDS: MAG-TAB SR PO (13:25)
[2023-12-14] MEDS: THERAGRAN PO (13:25)
[2023-12-14] MEDS: MIRALAX PO (13:25)
[2023-12-14] MEDS: VISBIOME PO (13:26)
[2023-12-14] MEDS: ROXICODONE 2.5 MG PO ×2 (13:27→23:54)
--- NOTE | 2023-12-14 13:53 | W.PN.HOSP.TC ---
Today's Communication/Plan
-
see note
Assessment / Plan
Assessment / Plan
Toxic metabolic encephalopathy:
-Waxing and waning in nature at this point
-Likely related to hypothermia/hypoglycemia/medication related
-History of Cope cirrhosis, ammonia level within normal limit
-CT head was normal admission
-HS zyprexa on hold.
Hypothermia:
Recurrent hypoglycemia
Failure to thrive/poor oral intake
-On Franki hugger
-Normal TSH, 2.16
-Normal cortisol, 22.3
-Blood cultures no growth so far.
-Abnormal urinalysis and cultures with Enterococcus and yeast, the latter probably contaminant.
-Zyprexa discontinued as may cause thermal dysregulation
-Patient required to be maintained on D5 NS to maintain blood glucose
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
-Prior to admission on IV daptomycin and then switched to Cefepime > ceftriaxone > cefuroxime.
-Initial MRI on 11/02 with T8/9 discitis. Follow-up MRI on 11/27 describing worsening and probably epidural abscess. At [place] upon transfer no need for surgical intervention but will be reevaluated with follow-up images.
-Transthoracic echo from 10/31 no vegetations.
-Follow-up ID recommendations
Enterococcus UTI (VRE)
-CFU only 10K and likely not causing significant problems
-ID managing antibiotics and have appreciated.
Chronic kidney disease II
-Creatinine has normal at this point
-Nephrology has signed off.
Chronic hypercapnic respiratory failure
Obstructive sleep apnea
Possible obesity hypoventilation syndrome
-Repeated chest x-ray--> atelectasis but otherwise unremarkable for acute findings
-Reviewed venous blood gas upon admission and compared to prior blood gases.
-Can use BiPAP if needed.
-Continue to monitor respiratory status closely
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
-Resume diuretics when nephro clear her
-Resumed lactulose
Hypertension:
-Continue home antihypertensive monitor blood pressure
Paroxysmal A-fib:
-Continue beta-blockers
-Continue cardiac monitoring
Diabetes mellitus type 2:
-Changed to regular diet with poor oral intake
-Start insulin sliding scale
-Hemoglobin A1c 5.7 on 10/29/2023. No need to update until 3 months past.
-Monitor blood sugars and adjust medications accordingly
Hypothyroidism:
-Resume thyroid replacement
GERD:
-Resume PPI
Morbid obesity:
-Lifestyle changes modifications
Mood disorder/History of agitation in the past:
-Resume trazodone and Zyprexa.
DVT prophylaxis: -SCDs -No pharmacologic prophylaxis due to thrombocytopenia
CODE STATUS:-DNR
12/14 discussed with family that patient prognosis remains guarded as patient not able to maintain normal body temperature and blood glucose level. Patient have poor oral intake and with encephalopathy aggravated by hypoglycemia/hypothermia will make
patient more sedated to limit oral intake. Both son understands and in agreement for hospice care although wanted to monitor patient for another 24 hours or so. Case management aware and following along. Patient possibly can be discharged to [place]
[place] as well and can be transition to hospice care over there if needed.
Anticipated Discharge: 24 - 48 hours
Subjective/Interval History
-
Date of Service: December 14, 2023
remains encephalopathic, waxing/weaning in nature
remains hypothermic
Objective Data
-
Labs:
Laboratory Results
12/14/23
04:13
WBC 3.1 L
Hgb 10.5 L
Hct 31.4 L
Plt Count 52 L
Sodium 140
Potassium 4.4
Chloride 110 H
Carbon Dioxide 26
BUN 31 H
Creatinine 0.9
Glucose 91
Calcium 9.1
Vital Signs:
Vital Signs
Temp Pulse Resp BP Pulse Ox
96.1 F L 67 12 114/68 97
12/14/23 04:29 12/14/23 08:49 12/14/23 08:49 12/14/23 06:00 12/14/23 08:49
I&O
12/13/23 12/14/23 12/15/23
06:59 06:59 06:59
Output Total 750 / 750
Balance -750 / -750
Review of Systems
-
Respiratory: Reports No Symptoms
Cardiac: Reports No Symptoms
Abdomen/GI: Reports No Symptoms
Physical Exam
-
General: Negative Respiratory Distress
HEENT: Oxygen
Respiratory: Clear to Auscultation
Cardiac: Regular Rhythm and S1/S2; Negative Murmur
GI: Soft, Nontender and Nondistended
Musculoskeletal: No Edema
Neuro: Awake, Alert and Oriented
--- NOTE | 2023-12-14 16:10 | CM ---
CM following re: d/c planning
Chart reviewed
CM addressed hospice consult and sent TT to Liana Gonzales/plastic cutter
Liana Gonzales met with the patient's sons at bedside to discuss hospice philosophy and discharge back to [facility]
It was discussed that the patient be discharged on Saturday 12/16 and signed onto hospice service
Pt is a bed hold at [facility] and this singer songwriter also communicated the same to Jackie Ambrose/clinical liaison at the facility
CM will continue to monitor patient progress and assist with d/c back to [facility] this wknd.
PLAN; d/c to [facility] on 12/16 on hospice
[2023-12-14 17:33] LABS: Glucose - Point of Care 135 mg/dl (70-99)
[2023-12-14] MEDS: CEFTIN 500 MG PO (20:33)
[2023-12-14] MEDS: COREG 3.125 MG PO (20:33)
[2023-12-14 22:48] LABS: Glucose - Point of Care 134 mg/dl (70-99)
--- NOTE | 2023-12-14 22:48 | PTCARENOTE ---
can not verify validity of vital signs before 184
[2023-12-14] MEDS: DESYREL 50 MG PO (23:16)
--- NOTE | 2023-12-14 23:30 | PTCARENOTE ---
pt's son staying over with pt. he requested additional dose of pain med stating his mother is in pain and cant sleep or get relief. pain meds not due until 0127. signing agent gave order for additional dose. see mar
[2023-12-15] VITALS: BP 111/65
[2023-12-15 02:00] VITALS: BP 115/64
[2023-12-15 04:00] VITALS: BP 108/69
[2023-12-15 04:55] LABS: Hematocrit 32.3 % (37.0-47.0); Hemoglobin 10.5 g/dL (12.0-16.0); Mean Corp Hgb Conc. 32.5 g/dL (33.0-37.0); Mean Corpuscular Hgb 34.2 pg (27.0-31.0); Mean Corpuscular Volume 105.2 fL (81.0-99.0); Mean Platelet Volume 11.4 fL (7.4-10.4); Platelet Count 65 10^3/uL (130-400); Red Blood Cell Count 3.07 10^6/uL (4.20-5.40); Red Cell Dist. Width 15.3 % (11.5-14.5); White Blood Cell Count 4.1 10^3/uL (4.8-10.8)
[2023-12-15 05:16] LABS: Blood Urea Nitrogen 28 mg/dl (7-17); Calcium 8.9 mg/dl (8.4-10.2); Carbon Dioxide 27 mmol/L (22-30); Chloride 113 mmol/L (98-107); Estimated Creatinine Clearance 56 ml/min; Glucose 96 mg/dl (70-99); Potassium 4.3 mmol/L (3.5-5.1); Sodium 141 mmol/L (135-145); eGFR > 60.00
[2023-12-15] MEDS: ROXICODONE 2.5 MG PO (05:16)
[2023-12-15] MEDS: SYNTHROID PO (05:23)
[2023-12-15 06:00] VITALS: BP 95/82
[2023-12-15] MEDS: ATIVAN 0.5 MG PO (06:10)
--- NOTE | 2023-12-15 06:18 | PTCARENOTE ---
pt increasingly agitated uncomfortable despite pain meds- - son at bedside requesting Ativan to help calm her- parts inspector gave order for ativan. see mar . other son is on the way in.
[2023-12-15 07:29] LABS: Glucose - Point of Care 85 mg/dl (70-99)
--- NOTE | 2023-12-15 07:57 | PTCARENOTE ---
Son came to me , pt is in pain , sons want her medicated. DR Thompson tt
[2023-12-15 08:00] VITALS: BP 103/77
[2023-12-15] MEDS: DILAUDID 0.25 MG IV (08:17)
[2023-12-15] MEDS: CEFTIN PO (08:51)
[2023-12-15] MEDS: OCUVITE SOFTGEL PO (08:51)
[2023-12-15] MEDS: MIRALAX PO (08:52)
[2023-12-15] MEDS: ASPIR LOW (ENTERIC COATED) PO (08:52)
[2023-12-15] MEDS: THERAGRAN PO (08:52)
[2023-12-15] MEDS: DUPHALAC/CHRONULAC PO (08:52)
[2023-12-15] MEDS: COREG PO (08:52)
[2023-12-15] MEDS: OSCAL 500 + D PO (08:52)
[2023-12-15] MEDS: MAG-TAB SR PO (08:52)
[2023-12-15] MEDS: TESSALON PERLES PO (08:52)
[2023-12-15] MEDS: VISBIOME PO (08:53)
--- NOTE | 2023-12-15 08:54 | W.PN.ID1 ---
Date of Service
Date of Service: December 15, 2023
Today's Communication
DC abx's.
Inpatient hopsice.
Assessment / Plan
# Failure to thrive, poor po intake, weak.
Pt's condition continues to decline.
She is being transitioned to inpatient hospice.
DC abx's.
Emotional support and empathy expressed to patient and to sons.
# Daptomycin associated hallucinations resolved off the drug.
# Hypotension resolved
# Hypothermia - persists, unclear source
- blood cultures neg
-Straight cath for urine appears contaminated specimen >sq epith cells. Pt without urinary symptoms.
Ucx: ONLY 10,000 CFU VRE, not consistent with UTI. VRE colonization of urine.
Repeat Ucx again <100,000 CFU VRE.
No need to treat yeast in urine.
# T8-T9 discitis/osteo without abscess
� � - 10/28/23 Group B strep bacteremia (2 sets bcx)
� � -TTE no gross vegetation
-CRP overall trending down 151 -> 69.5 -> 40 -> 43 -> 48.
� - 11/27 repeat MRI showed worsening T8-T9 discitis/osteo, moderate amt of phlegmon with mild spinal cord compression. Increase in paraspinal soft tissue edema/inflammation.
-Transferred to [facility] 11/28 to 12/06. No surgical intervention
-Was receiving ceftriaxone 2gIV q24h, planned for 6 weeks through 12/11/23 then po abx. Ceftriaxone replaced with Daptomycin at [facility] to complete till 12/11.
- DC'd daptomycin 12/08/23 -> replace with cefepime -> dc'd 12/10 -> ceftriaxone till 12/11
- Completed 6 weeks of IV antibiotic.
- Planned for po cefuroxime 500mg po bid x 6 more weeks through 01/22/24.
- DC abx's as pt now hospice.
#Additional Past Medical History:
GBS bacteremia, T8-T9 discitis/osteo tx with 6 weeks IV abx through 12/11/23.
Diabetes mellitus
Cirrhosis/COPE
sleep apnea on CPAP
Class III obesity BMI 54
CKD3b
Liver nodule (benign by Abd MRI)
Thrombocytopenia due to cirrhosis
Meningioma
Cholecystectomy
B TKA
Chief Complaint
-: Other (Hallucinations)
Subjective / Review of Systems
Sons at bedside. Pt deteriorated over night.
Vital Signs / Physical Exam
Vital Signs
Vital Signs
Temp Pulse Resp BP Pulse Ox
96.5 F L 69 15 95/82 94
12/15/23 05:14 12/15/23 06:00 12/15/23 06:00 12/15/23 06:00 12/15/23 06:00
Physical Exam
Constitutional: Acutely Ill
Neurological: Awake (arousable, very lethargic)
Objective Data
Lab Data
Lab Results
12/15/23 04:11
12/15/23 04:11
PT 16.0 Sec (11.4-14.6) H 12/12/23 04:46
INR 1.30 12/12/23 04:46
Estimated Creat Clear 56 ml/min 12/15/23 04:11
Lactic Acid Cancelled 12/08/23 14:00
Total Bilirubin 0.7 mg/dl (0.2-1.3) 12/12/23 04:46
AST 87 U/L (14-36) H 12/12/23 04:46
ALT 49 U/L (0-35) H 12/12/23 04:46
Alkaline Phosphatase 392 U/L (38-126) H 12/12/23 04:46
C-Reactive Protein 79.70 mg/L (0.0-10.00) H 12/09/23 03:53
Most recent labs reviewed.
Micro Results:
12/08/23 11:11 Blood Culture - Final
Blood/Venous No Growth - Final Report
12/08/23 10:01 Blood Culture - Final
Blood/Venous No Growth - Final Report
12/11/23 17:06 Urine Culture - Final
Urine Enterococcus faecium - VRE
Yeast
12/08/23 13:11 Urine Culture - Final
Urine Enterococcus faecium - VRE
Yeast
12/08/23 17:44 MRSA Screen - Final
Nose No Methicillin Resistant Staphylococcus aureus isolated.
12/08/23 CXR: Right PICC line with tip in the SVC, most likely the distal SVC. Extremely low lung volumes with crowding of central/vascular markings.
--- NOTE | 2023-12-15 09:49 | CM ---
met with hospice nurse michelle.patient will be signing on to hospice this morning.patient is having more difficulty with sob and not able to manage her pain.,poor po intake, continued hypothermia.son signed medicare letter.
--- NOTE | 2023-12-15 10:05 | W.PN.HOSP.TC ---
Today's Communication/Plan
-
d/c to inpatient hospice
Assessment / Plan
Assessment / Plan
Toxic metabolic encephalopathy:
-Waxing and waning in nature at this point
-Likely related to hypothermia/hypoglycemia/medication related
-History of Cope cirrhosis, ammonia level within normal limit
-CT head was normal admission
-HS zyprexa on hold.
Hypothermia:
Recurrent hypoglycemia
Failure to thrive/poor oral intake
-On Franki hugger
-Normal TSH, 2.16
-Normal cortisol, 22.3
-Blood cultures no growth so far.
-Abnormal urinalysis and cultures with Enterococcus and yeast, the latter probably contaminant.
-Zyprexa discontinued as may cause thermal dysregulation
-Patient required to be maintained on D5 NS to maintain blood glucose
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
-Prior to admission on IV daptomycin and then switched to Cefepime > ceftriaxone > cefuroxime.
-Initial MRI on 11/02 with T8/9 discitis. Follow-up MRI on 11/27 describing worsening and probably epidural abscess. At [facility] upon transfer no need for surgical intervention but will be reevaluated with follow-up images.
-Transthoracic echo from 10/31 no vegetations.
-Follow-up ID recommendations
Enterococcus UTI (VRE)
-CFU only 10K and likely not causing significant problems
-ID managing antibiotics and have appreciated.
Chronic kidney disease II
-Creatinine has normal at this point
-Nephrology has signed off.
Chronic hypercapnic respiratory failure
Obstructive sleep apnea
Possible obesity hypoventilation syndrome
-Repeated chest x-ray--> atelectasis but otherwise unremarkable for acute findings
-Reviewed venous blood gas upon admission and compared to prior blood gases.
-Can use BiPAP if needed.
-Continue to monitor respiratory status closely
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
-Resume diuretics when nephro clear her
-Resumed lactulose
Hypertension:
-Continue home antihypertensive monitor blood pressure
Paroxysmal A-fib:
-Continue beta-blockers
-Continue cardiac monitoring
Diabetes mellitus type 2:
-Changed to regular diet with poor oral intake
-Start insulin sliding scale
-Hemoglobin A1c 5.7 on 10/29/2023. No need to update until 3 months past.
-Monitor blood sugars and adjust medications accordingly
Hypothyroidism:
-Resume thyroid replacement
GERD:
-Resume PPI
Morbid obesity:
-Lifestyle changes modifications
Mood disorder/History of agitation in the past:
-Resume trazodone and Zyprexa.
DVT prophylaxis: -SCDs -No pharmacologic prophylaxis due to thrombocytopenia
CODE STATUS:-DNR
12/14 discussed with family that patient prognosis remains guarded as patient not able to maintain normal body temperature and blood glucose level. Patient have poor oral intake and with encephalopathy aggravated by hypoglycemia/hypothermia will make
patient more sedated to limit oral intake. Both son understands and in agreement for hospice care although wanted to monitor patient for another 24 hours or so. Case management aware and following along. Patient possibly can be discharged to [facility] as well and can be transition to hospice care over there if needed.
12/15 Patient in pain and required to be given IV dilaudid. did not have significant improvement. Hospice staff assessed and patient family agreeable for inpatient hospice care. Patient will be started on morphine drip and transition to inpatient
hospice care.
Anticipated Discharge: Today
Subjective/Interval History
-
Date of Service: December 15, 2023
having back pain and in mild distress from it
patient needed to be given oral ativan to help anxiety
patient confused during morning round
remains hypothermic
Objective Data
-
Labs:
Laboratory Results
12/15/23
04:11
WBC 4.1 L
Hgb 10.5 L
Hct 32.3 L
Plt Count 65 L D
Sodium 141
Potassium 4.3
Chloride 113 H
Carbon Dioxide 27
BUN 28 H
Creatinine 0.9
Glucose 96
Calcium 8.9
Vital Signs:
Vital Signs
Temp Pulse Resp BP Pulse Ox
96.2 F L 69 15 95/82 94
12/15/23 07:20 12/15/23 06:00 12/15/23 06:00 12/15/23 06:00 12/15/23 06:00
Review of Systems
-
Unable to obtain full review of systems at this time due to: Acuity
Physical Exam
-
General: Appears in Distress
HEENT: Oxygen
Respiratory: Clear to Auscultation
GI: Soft and Nontender
Neuro: Awake and No Motor Deficits; Negative Oriented
Psych: Confused
[2023-12-15] MEDS: PROTONIX PO (10:13)
--- NOTE | 2023-12-15 10:23 | PTCARENOTE ---
Hospice saw ptand sons now hospice . awaiting orders .
[2023-12-15] MEDS: ATIVAN 1 MG IV (10:45)
[2023-12-15] MEDS: DESENEX/MITRAZOL/ZEASORB 1 APPLIC TOPICAL (10:45)
[2023-12-15] MEDS: MORPHINE 100 IV (11:14)
--- NOTE | 2023-12-15 11:26 | PTCARENOTE ---
Pt struggling Morphine gtt startedsons at bedside
--- NOTE | 2023-12-15 15:37 | W.DCSUMMARY ---
Discharge Summary
Discharge Data
Date of Admission: 12/08/23
Date of Discharge: 12/15/23
-
Pending Results: No
Hospital Course
Discharging Physician : Dr Rick Thompson
Disposition : Inpatient hospice
Primary care physician : Unknown
Principal Discharge diagnosis :
Proximal encephalopathy
Hypothermia
Recurrent hypoglycemia
Recent discitis/osteomyelitis of T8-T9 vertebra
Enterococcal growth on urine culture
Chronic Discharge diagnosis :
Chronic kidney disease stage II
Chronic hypercapnic respiratory failure
Obstructive sleep apnea
Possible obesity hypoventilation syndrome
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
Essential hypertension
Paroxysmal atrial fibrillation
Upi-xhpcmwo-kiwvjijuq diabetes mellitus
Hypothyroidism
Gastroesophageal reflux disease
Mood disorder
Hospital Course :
Patient is a 88-year-old female with above-mentioned past medical history was brought to hospital for having new onset of mentation change, hypothermia and hypotension. Patient has been diagnosed for T8-T9 discitis/osteomyelitis and has been on IV
antibiotics. Patient was sent to [facility] in November 29 for nonimprovement of inflammatory changes on MRI of thoracic spine although patient was not recommended any surgical intervention. Patient was maintained on IV
antibiotics and was discharged to rehab. Rehab patient was noticed to having worsening mentation changes and hypothermia and was sent in for further evaluation.
Toxic metabolic encephalopathy -CT head at admission was negative for acute abnormality. Patient has history of White cirrhosis and ammonia level were checked and were within normal as well. Although patient undergoing discitis/osteomyelitis
treatment no true signs of ongoing sepsis. Patient on few psychoactive medication and with need of pain medication may have contributed to encephalopathy. Patient also had episode of hypothermia and hypoglycemia which also contributes to patient
confusion.
Hypothermia/recurrent hypoglycemia -reason for hypothermia remained unclear. Thyroid function/cortisol level were within normal limit. Blood cultures were negative as well. UA showing enterococcal bacterial growth although did not have
significant CFU to amount due to urinary tract infection. Patient required constant jose carlos hugger support. On top of that patient was not able to maintain good oral intake and was having episodic hypoglycemia. Patient was requiring D5 IVF support
to maintain proper blood was able.
T8-T9 discitis/osteomyelitis -initially diagnosed in October 28. Patient was on IV daptomycin and was switched to cefepime. ID was involved in care and was following along patient antibiotic was changed to Rocephin followed by cefuroxime during
later course.
Despite all appropriate medical treatment patient condition continues to remain precarious. Goal of care discussion was held with family in light of not improving and worsening quality of life patient family decided for patient to be transition to
inpatient hospice.
Important imaging findings :
None
Procedure findings :
None
Discharge Plan
-
Patient Disposition: Hospice - Inpatient DH
Discharge Orders:
Discharge Patient (As Directed); Ordered 12/15/23
Ordered By: Rick Thompson
Discharge Date and Time
Discharge Date/Time: 12/15/23 13:36
== END 2023-12-15 13:36 | disposition hospice, inpatient (51) | DRG 539 ==
LOC: IMU 12:44
PROVIDERS: Clinical Nurse Specialist Family Health; Physician Assistant; ADMITTING PHYSICIAN Hospitalist; ATTENDING PHYSICIAN Hospitalist; CONSULT PHYSICIAN Internal Medicine Infectious Disease; CONSULT PHYSICIAN Specialist; EMERGENCY PHYSICIAN Emergency Medicine; FAMILY PHYSICIAN Internal Medicine Geriatric Medicine
DX: M46.24 Osteomyelitis of vertebra, thoracic region (principal); G92.8 Other toxic encephalopathy; G95.20 Unspecified cord compression; Z68.43 Body mass index [BMI] 50.0-59.9, adult; J96.12 Chronic respiratory failure with hypercapnia; D61.818 Other pancytopenia; N39.0 Urinary tract infection, site not specified; R68.0 Hypothermia, not associated with low environmental temperature; K75.81 Nonalcoholic steatohepatitis (NASH); K74.60 Unspecified cirrhosis of liver; I12.9 Hypertensive chronic kidney disease with stage 1 through stage 4 chronic kidney disease, or unspecified chronic kidney disease; N18.32 Chronic kidney disease, stage 3b; E03.9 Hypothyroidism, unspecified; E66.01 Morbid (severe) obesity due to excess calories; Z87.891 Personal history of nicotine dependence; I95.9 Hypotension, unspecified; E88.09 Other disorders of plasma-protein metabolism, not elsewhere classified; I48.0 Paroxysmal atrial fibrillation; E11.22 Type 2 diabetes mellitus with diabetic chronic kidney disease; K21.9 Gastro-esophageal reflux disease without esophagitis; D69.59 Other secondary thrombocytopenia; R62.7 Adult failure to thrive
CPT/HCPCS: 36600; 51701; 70450; 71045; 80048; 80053; 81003; 81015; 82140; 82533; 82550; 82805; 82962; 83605; 84443; 85025; 85027; 85610; 86140; 87040; 87070; 87077; 87086; 87186; 92526; 92610; 93005; 94640; 96360; 96361; 97163; 97167; 97530; 99291; J0878

== ENCOUNTER 2023-12-15 13:36 | Inpatient (IN) | payer OTHER, SELFPAY ==
--- NOTE | 2023-12-15 11:19 | HOSPNOTE ---
Patient was admitted into Hospice G[facility] . Patient respirations are labored and she is complaining of severe pain 1/2 hour after dilaudid was given. Dr Thompson is in agreement with a GIP admission. Spoke with the patients sons about the Hospice
philosophy and care. They are in agreement and signed the Hospice consents. They agree to a Morphine drip for comfort. Patient will remain GIP because her symptoms at this this time cannot be managed outside of the hospital setting. She will need
skilled assessment of symptoms for titration of medication for optimal comfort.
[2023-12-15 14:12] VITALS: BP 96/43
--- NOTE | 2023-12-15 14:15 | PTCARENOTE ---
Received Pt from IMU at 2pm on a Morphine drip step 2. Pt accompanied by her sons at bedside. Pt AAOxO non verbal, purewick in place, suction at bedside. Family oriented to room and use of call headley, went over plan of care plan of care and meds
involved in hospice care.
--- NOTE | 2023-12-15 15:49 | HPS.HSE ---
Family Physician
-
Family Physician: NOT KNOW UNKNOWN - PT DOES
Chief Complaint
-
Hospice admission for failure to thrive
History of Present Illness
Patient is 88-year-old female with past medical history of recent T8-T9 discitis/osteomyelitis, chronic kidney disease stage II, chronic hypercapnic respiratory failure, obstructive sleep apnea, obesity hypoventilation syndrome, cirrhosis from
nonalcoholic state hepatitis, essential hypertension, paroxysmal atrial fibrillation, vpg-xzafpfp-xgdtcqpgg diabetes mellitus, hypothyroidism, gastroesophageal reflux disease, mood disorder was admitted to hospital on 12/08/23 for new onset of
confusion/hypotension/hypothermia. Despite aggressive medical management patient condition continues to remain precarious and prognosis remains poor. After discussion with family patient was decided to be transition to inpatient hospice care at .
Today patient morning and pain in the morning requiring IV Dilaudid to be given. Patient also was encephalopathic/minimally agitated and required to be given small dose of Ativan.
Medical History
Past Medical History
Past Medical History: Reports Other
Additional Past Medical History:
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
atrial fibrillation, bfa-gsxovwa-kanmmyxnx diabetes mellitus, hypothyroidism, gastroesophageal reflux disease, mood disorder
Past Surgical History: Reports Other
Social History
Tobacco: Non-smoker
Alcohol: None
Drug: None
Living: Other (Rehab)
Family History
Family History: Not pertinent
Allergies / Home Medications
Allergies reflects when Allergies were last updated in [facility].
Home Medications with original date entered in [facility]
Allergy/Medication List:
Allergies
Allergy/AdvReac Type Severity Reaction Status Date / Time
daptomycin Allergy Hallucinati Verified 12/14/23 23:30
ons
levofloxacin [From Levaquin] Allergy increased Verified 12/08/23 09:50
leg
swelling
and
redness in
legs
Home Medications
Bifidobacterium infantis 4 mg capsule (Align) 4 mg PO DAILY@0900 probiotic 10/29/23
benzonatate 100 mg capsule 100 mg PO TID PRN cough 10/29/23
calcium carbonate 600 mg-vitamin D3 20 mcg (800 unit) chewable tablet (Caltrate 600 plus D) 1 tab PO DAILY Supplement 10/29/23
carvedilol 3.125 mg tablet (Coreg) 3.125 mg PO BID@899,1999 Heart Disease/Condition 10/29/23
sgakmkar-tfuy-ickq 8 mg-folic 400 mcg-K 50 mcg-lutein 300 mcg tablet (Centrum Silver Women) 1 tab PO DAILY@0900 Supplement 10/29/23
vit C 250 mg-vit E 90 mg-zinc 40 mg-copper 1 gc-yxpmqj-tvssqm capsule (PreserVision AREDS-2) 2 cap PO BID@ Supplement 10/29/23
acetaminophen 500 mg tablet 1,000 mg PO Q6HPRN PRN mild pain 11/27/23
ipratropium 0.5 mg-albuterol 3 mg (2.5 mg base)/3 mL nebulization soln 3 ml inhalation R Q6HPRN PRN cough 11/27/23
lactase 3,000 unit tablet (Lactaid) 3,000 unit PO TIDPRN PRN when eats dairy 11/27/23
oxycodone 5 mg tablet 2.5 mg PO Q12H PRN severe pain 11/27/23
simethicone 125 mg chewable tablet 125 mg PO Q4H PRN gas 11/27/23
sodium chloride 0.9 % (flush) (Normal Saline Flush 0.9 % injection syringe) 10 ml IV DAILY@1300 flush 11/27/23
sodium chloride 0.9 % (flush) (Normal Saline Flush 0.9 % injection syringe) 10 ml IV TID@0600,1200,1800 flush 11/27/23
aspirin 81 mg tablet,delayed release 81 mg PO DAILY@0900 Blood Clot Prevention/Tx 12/08/23
daptomycin 500 mg intravenous solution 500 mg IV DAILY@1300 Infection 12/08/23
furosemide 20 mg tablet 20 mg PO DAILY@0900 Fluid Retention/Swelling 12/08/23
lactulose 10 gram/15 mL (15 mL) oral solution 10 g PO BID@0900,1600 LIVER failure 12/08/23
levothyroxine 88 mcg tablet 88 mcg PO DAILY Thyroid 12/08/23
magnesium 200 mg tablet 100 mg PO DAILY@0900 Electrolyte Repletion 12/08/23
olanzapine 5 mg tablet (Zyprexa) 5 mg PO DAILY@2100 Mental Health/Anxiety 12/08/23
pantoprazole 40 mg tablet,delayed release 40 mg PO DAILY Gastrointestinal Issue 12/08/23
polyethylene glycol 3350 17 gram oral powder packet (Miralax) 17 g PO DAILY@0900 Constipation 12/08/23
trazodone 50 mg tablet 50 mg PO Q6HPRN PRN agitation 12/08/23
Review of Systems
-
Unable to obtain full review of systems at this time due to: Acuity
Physical Exam
Vital Signs
Vital Signs
Temp Pulse Resp BP Pulse Ox
94.4 F L 75 18 96/43 99
12/15/23 14:12 12/15/23 14:12 12/15/23 14:12 12/15/23 14:12 12/15/23 14:12
Physical Exam
General: Appears in Distress and Pain
HEENT: Oxygen
Respiratory: Clear
Cardiac: S1/S2 and Regular Rhythm; No Murmur
GI: Soft, Non Tender, Non Distended and Normal Bowel Sounds
Musculoskeletal: No Cyanosis and No Edema
Neuro: Awake and No Motor Deficits; No Oriented
Psych: Calm
Data Reviewed
-
Lab Data: Labs Reviewed by me and Discussed with Family
Impression/Plan
-
List of diagnosis :
Proximal encephalopathy
Hypothermia
Recurrent hypoglycemia
Recent discitis/osteomyelitis of T8-T9 vertebra
Enterococcal growth on urine culture
Chronic kidney disease stage II
Chronic hypercapnic respiratory failure
Obstructive sleep apnea
Possible obesity hypoventilation syndrome
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
Essential hypertension
Paroxysmal atrial fibrillation
Eqc-iyjsvga-mjxctkztq diabetes mellitus
Hypothyroidism
Gastroesophageal reflux disease
Mood disorder
Care plan:
Patient started on morphine drip at 1 mg/h, intermittent morphine dose per protocol
IV Ativan ordered for anxiety
IV Haldol as needed for agitation episode
Overall and rectal Tylenol ordered for fever and mild pain control
Dulcolax suppository for constipation
IV Zofran as needed ordered for nausea and vomiting
Discussed care plan with hospice staff and family
DNR/DNI
Total time spent : 76 mins
I personally saw and examined the patient.
I have reviewed all diagnostic interpretations and treatment plans as written.
Time includes patient management by me, time spent at the patients bedside, time to review lab and imaging results, discussing patient care, documentation in the medical record, and time spent with the family or caregiver and discussing care plan
with RN/Consultants.
[2023-12-15] MEDS: MORPHINE SULFATE 2 MG IV (22:39)
[2023-12-15 23:46] VITALS: BP 124/65
[2023-12-16 07:00] VITALS: BP 90/40
--- NOTE | 2023-12-16 08:23 | VATNOTE ---
R arm PICC dressing clean, dry, and in tact at this time. Discussed routine PICC line dressing change with family at the bedside. Family and this RN agrees that dressing change is not needed at this time and that changing the PICC line dressing
would not be in line with the goals of care. Dressing change deferred. Will continue to monitor PICC site to see if intervention is needed.
[2023-12-16] MEDS: MORPHINE SULFATE 2 MG IV ×6 (09:52→21:54)
[2023-12-16] MEDS: FLUSH (NSS) 2 FLUSH IV ×5 (09:56→17:50)
--- NOTE | 2023-12-16 10:31 | HOSPNOTE ---
Received patient in bed.Both sons Jung and Royal in attendance.have been her all night.Zaid unresponsive.skin cool and pale . 02 sat 94% on 2 L nasal cannula.respirations 6 to 10 per minute with periods of apnea lasting about 10-15 secs.some noisy
respirations at times+3- edema to all extremities.iv morphine drip infusing at step one and patient appears comfortable.family agrees and states seemed comfortable through the night.No urine past 24 hours .Family aware of imminent status and could
be days to hours.informal conference with facility nurse Gill.Dose of prn morphine given prior to personal care and repositioning.Zaid washed .lotion applied to skin and repositioned with help of facility patient tech.appears comfortable at end of
visit.Emotional support provided to patients sons and to patient.GIP continues for symptom management and imminent status.No needs or concerns at this time noted from facility nurse Gill.
--- NOTE | 2023-12-16 10:43 | CM ---
CM is following re: discharge planning.
Pt is on inpatient hospice with hospice [facility].
CM is available for emotional support.
--- NOTE | 2023-12-16 11:41 | W.PN.HOSP.TC ---
Today's Communication/Plan
-
continue comfort measures
Assessment / Plan
Assessment / Plan
List of diagnosis :
Proximal encephalopathy
Hypothermia
Recurrent hypoglycemia
Recent discitis/osteomyelitis of T8-T9 vertebra
Enterococcal growth on urine culture
Chronic kidney disease stage II
Chronic hypercapnic respiratory failure
Obstructive sleep apnea
Possible obesity hypoventilation syndrome
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
Essential hypertension
Paroxysmal atrial fibrillation
Zyj-bcnbsyq-ahqdzomit diabetes mellitus
Hypothyroidism
Gastroesophageal reflux disease
Mood disorder
Care plan:
Patient started on morphine drip at 1 mg/h, intermittent morphine dose per protocol
IV Ativan ordered for anxiety
IV Haldol as needed for agitation episode
Overall and rectal Tylenol ordered for fever and mild pain control
Dulcolax suppository for constipation
IV Zofran as needed ordered for nausea and vomiting
Discussed care plan with hospice staff and family
DNR/DNI
2/10 Sons at bedside.
Anticipated Discharge: Today
Subjective/Interval History
-
Date of Service: December 16, 2023
no issues overnight
comfortable in bed
Objective Data
-
Vital Signs:
Vital Signs
Temp Pulse Resp BP Pulse Ox
94.4 F L 74 10 90/40 95
12/15/23 23:46 12/16/23 07:00 12/16/23 07:00 12/16/23 07:00 12/16/23 08:00
I&O
12/15/23 12/16/23 12/17/23
06:59 06:59 06:59
Intake Total 0 / 0
Output Total 0 / 0
Balance 0 / 0
Review of Systems
-
Unable to obtain full review of systems at this time due to: Acuity
Physical Exam
-
General: Negative Appears in Distress or Pain
Respiratory: Rhonchi and Other (Apnic)
Cardiac: Regular Rhythm and S1/S2; Negative Murmur
GI: Soft and Nondistended
Neuro: Negative Awake or Alert
[2023-12-16] MEDS: ROBINUL 0.200000000000000011 MG IV ×2 (13:50→19:40)
[2023-12-16] MEDS: NSS (PRESERVATIVE FREE) 0.5 ML IV ×3 (15:05→21:54)
[2023-12-16] MEDS: ATIVAN 1 MG IV ×3 (15:05→21:53)
[2023-12-16] MEDS: HALDOL 1 MG IV (17:48)
[2023-12-16 23:29] VITALS: BP 77/35
[2023-12-17] MEDS: ROBINUL 0.200000000000000011 MG IV ×4 (00:27→20:42)
[2023-12-17] MEDS: MORPHINE SULFATE 2 MG IV ×11 (00:27→14:55)
[2023-12-17] MEDS: TRANSDERM-SCOP 1 PATCH TRANSDERM (00:49)
[2023-12-17 07:00] VITALS: BP 101/84
[2023-12-17] MEDS: FLUSH (NSS) 2 FLUSH IV ×6 (08:13→15:02)
--- NOTE | 2023-12-17 09:57 | HOSPNOTE ---
Patient assessed laying in bed, significant terminal secretions noted, agonal breathing, episodes of apnea noted, mottling to the bilateral feet, fully unresponsive, PPS 10%, KPS 10%. Patient's family aware of limited life expectancy. Bed bath, logan
care, mouth care, hair care, turning and repositioning provided. Patient continues on step 2 of the morphine protocol. Care coordinated with Gill SCHMITZ. Patient continues GIP for pain and anxiety management, and titration of medications.
--- NOTE | 2023-12-17 11:10 | W.PN.HOSP.TC ---
Today's Communication/Plan
-
continue hospice care
Assessment / Plan
Assessment / Plan
List of diagnosis :
Proximal encephalopathy
Hypothermia
Recurrent hypoglycemia
Recent discitis/osteomyelitis of T8-T9 vertebra
Enterococcal growth on urine culture
Chronic kidney disease stage II
Chronic hypercapnic respiratory failure
Obstructive sleep apnea
Possible obesity hypoventilation syndrome
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
Essential hypertension
Paroxysmal atrial fibrillation
Dsw-jaasnxe-rsmuhkgbj diabetes mellitus
Hypothyroidism
Gastroesophageal reflux disease
Mood disorder
Care plan:
Patient started on morphine drip at 1 mg/h, intermittent morphine dose per protocol
IV Ativan ordered for anxiety
IV Haldol as needed for agitation episode
Overall and rectal Tylenol ordered for fever and mild pain control
Dulcolax suppository for constipation
IV Zofran as needed ordered for nausea and vomiting
Discussed care plan with hospice staff and family
DNR/DNI
12/16 Sons at bedside.
12/17 Discussed with son .
Anticipated Discharge: Within 24 hours
Subjective/Interval History
-
Date of Service: December 17, 2023
no issues overnight
resting comfortable in bed
Objective Data
-
Vital Signs:
Vital Signs
Temp Pulse Resp BP Pulse Ox
94.4 F L 77 12 101/84 89
12/15/23 23:46 12/17/23 07:00 12/17/23 07:00 12/17/23 07:00 12/17/23 08:30
I&O
12/16/23 12/17/23 12/18/23
06:59 06:59 06:59
Intake Total 0 / 0
Output Total 0 / 0
Balance 0 / 0
Review of Systems
-
Unable to obtain full review of systems at this time due to: Acuity
Physical Exam
-
General: No Apparent Distress and Comfortable
HEENT: Oxygen and Other (apnic)
GI: Soft, Nontender and Nondistended
Musculoskeletal: Edema, Right Lower Extrem and Edema, Left Lower Extrem
Neuro: Negative Awake or Alert
[2023-12-17] MEDS: MORPHINE 100 IV (11:59)
[2023-12-17 23:00] VITALS: BP 55/33
[2023-12-18 07:07] VITALS: BP 57/31
--- NOTE | 2023-12-18 07:51 | W.PN.HOSP.TC ---
Today's Communication/Plan
-
Continue comfort care measures.
Assessment / Plan
Assessment / Plan
Physical exam:
General: Acutely ill. No Apparent Distress and Comfortable. Apparent periods of apnea
Heart: Regular rate and rhythm S1-S2.
Lungs: Decreased breath sounds bilateral.
GI: Soft, Nontender and Nondistended
Musculoskeletal: Edema, Right Lower Extrem and Edema, Left Lower Extrem
Neuro: Lethargic, minimally responsive.
A/P:
List of diagnosis :
Metabolic encephalopathy
Hypothermia
Recurrent hypoglycemia
Recent discitis/osteomyelitis of T8-T9 vertebra
Enterococcal growth on urine culture
Chronic kidney disease stage II
Chronic hypercapnic respiratory failure
Obstructive sleep apnea
Possible obesity hypoventilation syndrome
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
Essential hypertension
Paroxysmal atrial fibrillation
Kxp-putsuqw-bkxyubsld diabetes mellitus
Hypothyroidism
Gastroesophageal reflux disease
Mood disorder
Care plan:
Patient cont on morphine drip and up to step 3 per protocol, intermittent morphine doses as needed.
IV Ativan ordered for anxiety
IV Haldol as needed for agitation episode
Overall and rectal Tylenol ordered for fever and mild pain control
Dulcolax suppository for constipation
IV Zofran as needed ordered for nausea and vomiting
Discussed care plan with attending RN and family (son) today
DNR/DNI
Anticipated Discharge: 24 - 48 hours
Subjective/Interval History
-
Date of Service: December 18, 2023
Patient seen and examined.
Objective Data
-
Vital Signs:
Vital Signs
Temp Pulse Resp BP Pulse Ox
90.9 F L 68 14 57/31 88
12/18/23 07:07 12/18/23 07:07 12/18/23 07:07 12/18/23 07:07 12/18/23 07:07
I&O
12/17/23 12/18/23 12/19/23
06:59 06:59 06:59
Intake Total 0 / 0
Output Total 0 / 0
Balance 0 / 0
[2023-12-18] MEDS: ROBINUL 0.200000000000000011 MG IV ×3 (08:38→18:13)
[2023-12-18] MEDS: MORPHINE SULFATE 2 MG IV ×2 (11:20→18:11)
[2023-12-18] MEDS: NSS (PRESERVATIVE FREE) 0.5 ML IV (12:17)
[2023-12-18] MEDS: ATIVAN 1 MG IV (12:17)
--- NOTE | 2023-12-18 12:41 | HOSPNOTE ---
Benefits Specialist visited patient in hospital room with son present. 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 Son denied spiritual concerns or distress. Patient was unresponsive. Benefits Specialist
provided spiritual and grief support through active listening, spiritual direction, and prayer.. Benefits Specialist will visit 2x/week.
--- NOTE | 2023-12-18 12:51 | CHAP ---
Rabbi Paul Bender of [facility] in [place] has been called to come and prayer for Sanjana, at the request of her son. He is expected within the hour.
[2023-12-18] MEDS: MORPHINE 100 IV (14:12)
--- NOTE | 2023-12-18 14:15 | HOSPNOTE ---
Sons are bedside emotional support provided and all questions answered. Patient is having long periods of apnea, secretions seem to be managed with Robinol. Patient continues on a morphine drip. Encouraged IV push of morphine prior to any care.
Patient will be seen daily by hospice nurse.
--- NOTE | 2023-12-18 15:36 | CM ---
Inpatient hospice following. CM will remain available if hospice or family need assistance.
--- NOTE | 2023-12-18 18:04 | PTCARENOTE ---
Patient remains on the Morphine drip (stage III). Copious secretions noted despite administering Robinol. Alba at bedside, very attentive to care. Emotional support provided.
--- NOTE | 2023-12-18 20:05 | PTCARENOTE ---
Entered pt's room at rounds, pt found to be without spontaneous respirations, no heart tones noted. [employer] notified to pronounce , responded bedside. Pt's son at the bedside, emotional support provided.
--- NOTE | 2023-12-18 22:59 | VATNOTE ---
PCN to pull pt.'s picc line since has passed.
--- NOTE | 2023-12-18 23:06 | W.PN.DEATH ---
Pronouncement of
-
Called to see patient to pronounce.
No spontaneous heart tones or respirations noted.
Patient not responsive to verbal stimuli.
Patient is pronounced .
Time of : 19:30
Date of : 12/18/23
Family Notified: Yes (family present in room)
--- NOTE | 2023-12-18 23:57 | PTCARENOTE ---
Addendum entered by Jami Chiu RN 12/18/23 23:58:
Peripheral IV d/c'd prior to postmortem care. Pt with RUE PICC, d/c'd with permission of [facility] VAT RN, Lucy. No residual bleeding noted s/p PICC d/c.
Original Note:
Pt's son present during postmortem care, per their family's spiritual practices. All belongings and valuables sent home with pt's son. Postmortem care performed, [facility] notified and pt transported to the [facility] [place].
--- NOTE | 2023-12-19 09:48 | W.DCSUMMARY ---
Discharge Summary
Discharge Data
Date of Admission: 12/15/23
Date of Discharge: 12/18/23
-
Pending Results: No
Hospital Course
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 She also had vancomycin-resistant Enterococcus
in her urine. ID was consulted. Despite aggressive treatment patient continued to deteriorate clinically so patient and family decided in favor of comfort measures. Patient was admitted to inpatient hospice. She was kept on comfort care
medications. Patient on 12/18/2023 at 1930. Let her soul rest in peace.
Discharge Plan
-
Patient Disposition:
Date/Time
Date/Time: 12/18/23 19:30
Discharge Date and Time
Discharge Date/Time: 12/18/23 19:30
== END 2023-12-18 19:30 | disposition expired | DRG 871 ==
LOC: 2 NORTH 13:36
PROVIDERS: ADMITTING PHYSICIAN Hospitalist; ATTENDING PHYSICIAN Hospitalist
DX: A41.9 Sepsis, unspecified organism (principal); G92.8 Other toxic encephalopathy; J96.12 Chronic respiratory failure with hypercapnia; E66.2 Morbid (severe) obesity with alveolar hypoventilation; Z16.21 Resistance to vancomycin; Z68.43 Body mass index [BMI] 50.0-59.9, adult; R62.7 Adult failure to thrive; N18.2 Chronic kidney disease, stage 2 (mild); I12.9 Hypertensive chronic kidney disease with stage 1 through stage 4 chronic kidney disease, or unspecified chronic kidney disease; E11.22 Type 2 diabetes mellitus with diabetic chronic kidney disease; E11.649 Type 2 diabetes mellitus with hypoglycemia without coma; I48.0 Paroxysmal atrial fibrillation; E11.69 Type 2 diabetes mellitus with other specified complication; E03.9 Hypothyroidism, unspecified; K21.9 Gastro-esophageal reflux disease without esophagitis; Z66 Do not resuscitate; Z51.5 Encounter for palliative care; B95.2 Enterococcus as the cause of diseases classified elsewhere